=== PATIENT | female | born 1945 | race Caucasian/White ===

== ENCOUNTER 2019-07-31 14:01 | Outpatient (CLI) | payer MEDICARE, SELFPAY ==
--- NOTE | 2019-07-31 14:08 | XR_ITS ---
WS: [id number] SCREENING DEXA SCAN [employer] CLINICAL INFORMATION: OSTEOPOROSIS COMPARISON: March 27, 2016 FINDINGS: The L1-L4 bone mineral density measures 1.060 g/cm2. This corresponds to a T score score of -1.0 and Z score of 0.3. Left femoral neck bone mineral density measures 1.022 g/cm2. This corresponds to a T score of 0.1 and Z score of 1.4. Right femoral neck bone mineral density measures 1.008 g/cm2. This corresponds to a T score 0.0of and Z score of 1.2. Mean femoral neck bone mineral density measures 1.015 g/cm2. This corresponds to a T score of 0.1 and Z score of 1.3. XR/XR DEXA axial skeleton* [id number] IMPRESSION: Osteopenia lumbar spine. Normal bone mineralization femoral necks. Patient's FRAX calculated 10 year probability for major osteoporotic fracture i s 14.7 % and osteoporotic hip fracture is 1.8%. Since 2017 bone mineral density lumbar spine is increased +2.4% and increased + 2.1% in the femoral necks.
== END 2019-07-31 14:02 | disposition home or self-care (01) ==
LOC: RADWPI 14:05
PROVIDERS: Family Provider Family Medicine; Visit Provider Family Medicine
DX: M81.0 Age-related osteoporosis without current pathological fracture (principal); M85.88 Other specified disorders of bone density and structure, other site
CPT/HCPCS: 77080

== ENCOUNTER 2019-11-23 09:41 | Outpatient (CLI) | payer MEDICARE, SELFPAY ==
--- NOTE | 2019-11-23 09:44 | MM_ITS ---
WS: [id number] BILATERAL SCREENING DIGITAL MAMMOGRAM WITH CAD HISTORY: SCREEN COMPARISON: 07/10/2018, 05/23/2017 and 03/27/2016 Bilateral CC and MLO views submitted. Computer aided detection analyzed. Breast composition: The breasts are heterogeneously dense, which may obscure small masses. No suspici ous masses, microcalcifications or architectural distortion. Benign calcifications and stable asymmet liliana within each breast. MM/[id number] IMPRESSION: BI-RADS: 2-Benign FOLLOW UP: 1 Year Follow-up
== END 2019-11-23 09:42 | disposition home or self-care (01) ==
LOC: RADSHAW 09:41
PROVIDERS: PCP Family Medicine; Visit Provider Family Medicine
DX: Z12.31 Encounter for screening mammogram for malignant neoplasm of breast (principal)
CPT/HCPCS: 77067

== ENCOUNTER → 2020-07-25 13:09 | Outpatient (BNVA) | payer MEDICARE, SELFPAY | PROVIDERS: PCP Family Medicine; Referring Provider Family Medicine; Visit Provider Specialist | DX: S83.289A Other tear of lateral meniscus, current injury, unspecified knee, initial encounter (principal); X58.XXXA Exposure to other specified factors, initial encounter | CPT/HCPCS: 73560; 73565 ==

== ENCOUNTER 2020-08-17 13:21 | Outpatient (CLI) | payer MEDICARE, SELFPAY ==
--- NOTE | 2020-08-17 13:45 | MR_ITS ---
WS: [id number] MRI RIGHT KNEE NONCONTRAST TECHNIQUE: Axial PD, coronal PD fat sat, coronal PD, sagittal PD, and sagittal PD fat-sat images obta ined. CLINICAL INFORMATION: S83.289A - Other tear of lateral meniscus, current injury... COMPARISON: None. FINDINGS: Distal quadriceps and patella tendons are intact. Hypertrophic patella. Mild prepatellar and infrapat ellar soft tissue edema. Moderate to advanced degenerative narrowing medial and lateral joint compart ments. Small suprapatellar effusion. Chronic thinning of the medial and lateral meniscus. No acute ap pearing meniscal tears. Blunting anterior horn lateral meniscus with chronic appearing tear at the me niscal root. Advanced chondromalacia patella. No subchondral edema. Normal medial and lateral patellar retinaculum . Medial and lateral collateral ligaments are intact. Normal bone marrow signal in the femoral condyl es and tibial plateau. Hypertrophic changes along the joint line. Normal popliteal fossa. MR/MR knee RT wo con* [id number] IMPRESSION: 1. Diffuse thinning with poorly visualized ACL with intrasubstance tear likely chronic. A few normal fibers are visualized. Normal PCL. 2. Moderate to advanced tricompartmental arthritis with chondromalacia. 3. Advanced chondromalacia patella. No subchondral edema. Small suprapatellar effusion. 4. Normal MCL and LCL. 5. Chronic thinning of the medial and lateral meniscus. Blunting of the anteri or horn lateral meniscus with chronic appearing tear at the meniscal root. Outbridge grading: grade III: partial-thickness cartilage loss with focal ulcer ation
== END 2020-08-17 13:22 | disposition home or self-care (01) ==
LOC: RADSHAW 13:26
PROVIDERS: PCP Family Medicine; Visit Provider Specialist
DX: S83.281A Other tear of lateral meniscus, current injury, right knee, initial encounter (principal); M13.861 Other specified arthritis, right knee; M22.41 Chondromalacia patellae, right knee; M25.461 Effusion, right knee; X58.XXXA Exposure to other specified factors, initial encounter
CPT/HCPCS: 73721

== ENCOUNTER 2021-07-04 06:00 | Outpatient (RCR) | payer MEDICARE, SELFPAY | END 2021-08-01 23:59 | disposition home or self-care (01) | LOC: SPT 06:00 | PROVIDERS: PCP Family Medicine; Referring Provider Nurse Practitioner Family; Visit Provider Nurse Practitioner Family | DX: N39.46 Mixed incontinence (principal) | CPT/HCPCS: 97110; 97161; 97530 ==

== ENCOUNTER 2021-07-24 13:43 | Outpatient (CLI) | payer MEDICARE, SELFPAY ==
--- NOTE | 2021-07-24 13:51 | MM_ITS ---
WS: [id number] VIEWS: MLO and CC views both breasts. 3D digital tomosynthesis is also included in this exam. Comparison made with prior exam of 03/10/2015, 03/27/2016, 05/23/2017, 07/10/2018, and 11/23/2019.. Findings: There was no sign of mass, architectural distortion or suspicious calcification in either breast. He terogeneously dense MM/[place] [id number] Impression: BI-RADS: 2-Benign FOLLOW-UP: 1 Year Follow-up This mammogram was also analyzed by the Computer Aided Detection System R2 [employer].
--- NOTE | 2021-07-24 13:51 | XR_ITS ---
WS: [id number] DEXA (DUAL ENERGY X-RAY ABSORPTIOMETRY) Bone mineral density was performed using a Picovico machine. HISTORY: POSTMENOPAUSAL COMPARISON: 07/31/2019 Lumbar spine BMD (L1-L4): 1.084 g/cm2 T score: -0.8 Z score: 0.4 Total hip BMD: Left: 1.030 g/cm2. T score: 0.2 Z score: 1.4 Right: 1.018 g/cm2. T score: 0.1 Z score: 1.4 10 year probability of a major osteoporotic fracture is 14.8% Compared to the prior study from 07/31/2019. Lumbar spine bone mineral density has increased by 2.3%. Bilateral hips bone mineral density has increased by 0.9%. XR/XR DEXA axial skeleton* [id number] IMPRESSION: Normal bone mineral density based upon the WHO classification for females. Significant improvement in bone mineral density within the lumbar spine since t he prior study.
== END 2021-07-24 13:44 | disposition home or self-care (01) ==
LOC: RAD 13:44
PROVIDERS: PCP Family Medicine; Visit Provider Nurse Practitioner Family
DX: Z12.31 Encounter for screening mammogram for malignant neoplasm of breast (principal); Z78.0 Asymptomatic menopausal state; M85.89 Other specified disorders of bone density and structure, multiple sites
CPT/HCPCS: 77063; 77067; 77080

== ENCOUNTER 2021-08-02 06:00 | Outpatient (RCR) | payer MEDICARE, SELFPAY | END 2021-08-09 23:59 | disposition home or self-care (01) | LOC: SPT 06:00 | PROVIDERS: PCP Family Medicine; Referring Provider Nurse Practitioner Family; Visit Provider Nurse Practitioner Family | DX: N39.46 Mixed incontinence (principal); M54.50 Low back pain, unspecified | CPT/HCPCS: 97110 ==

== ENCOUNTER 2022-08-14 08:39 | Outpatient (CLI) | payer MEDICARE, SELFPAY ==
--- NOTE | 2022-08-14 08:45 | MM_ITS ---
WS: [id number] BILATERAL 3D TOMOSYNTHESIS DIGITAL SCREENING MAMMOGRAPHY WITH CAD CLINICAL INFORMATION: SCREENING HISTORY: Screening mammogram. No current complaints. COMPARISON: 2021 TECHNIQUE: Bilateral CC and MLO views. FINDINGS: The breasts are composed of heterogeneous fibroglandular density tissue, which can limit the detectio n of small underlying mass lesions. No suspicious mass, asymmetry, calcifications, or architectural d istortion. No evidence of malignancy. Punctate and lucent centered calcifications. MM/[place] [id number] IMPRESSION: BI-RADS: 2-Benign FOLLOW UP: 1 Year Follow-up Recommend return to annual screening mammography.
== END 2022-08-14 08:40 | disposition home or self-care (01) ==
PROVIDERS: PCP Family Medicine; Visit Provider Family Medicine
DX: Z12.31 Encounter for screening mammogram for malignant neoplasm of breast (principal)
CPT/HCPCS: 77063; 77067

== ENCOUNTER → 2022-09-21 09:47 | Outpatient (BNVA) | payer MEDICARE, SELFPAY | PROVIDERS: PCP Family Medicine; Visit Provider Podiatrist Foot & Ankle Surgery | DX: M76.61 Achilles tendinitis, right leg (principal); M24.571 Contracture, right ankle | CPT/HCPCS: 73630; 99204 ==

== ENCOUNTER → 2022-10-04 08:35 | Outpatient (BNVA) | payer MEDICARE, SELFPAY | PROVIDERS: PCP Family Medicine; Referring Provider Emergency Medicine; Visit Provider Student in an Organized Health Care Education/Training Program | DX: M17.11 Unilateral primary osteoarthritis, right knee | CPT/HCPCS: 20610; 73560; 73565; 99204; J3301 ==

== ENCOUNTER → 2022-10-19 09:56 | Outpatient (BNVA) | payer MEDICARE, SELFPAY | PROVIDERS: PCP Family Medicine; Visit Provider Podiatrist Foot & Ankle Surgery | DX: M76.61 Achilles tendinitis, right leg (principal); M24.571 Contracture, right ankle | CPT/HCPCS: 99213 ==

== ENCOUNTER → 2023-01-03 10:38 | Outpatient (BNVA) | payer MEDICARE, SELFPAY | PROVIDERS: PCP Family Medicine; Visit Provider Physician Assistant | DX: M17.11 Unilateral primary osteoarthritis, right knee (principal) | CPT/HCPCS: 99213 ==

== ENCOUNTER → 2023-02-08 09:17 | Outpatient (BNVA) | payer MEDICARE, SELFPAY | PROVIDERS: PCP Family Medicine; Visit Provider Physician Assistant | DX: M17.11 Unilateral primary osteoarthritis, right knee (principal) | CPT/HCPCS: 20610; 99213; J7325 ==

== ENCOUNTER → 2023-05-07 08:23 | Outpatient (BNVA) | payer MEDICARE, SELFPAY | PROVIDERS: PCP Family Medicine; Visit Provider Physician Assistant | DX: M17.11 Unilateral primary osteoarthritis, right knee (principal) | CPT/HCPCS: 99214 ==

== ENCOUNTER 2023-07-03 13:52 | Outpatient (CLI) | payer MEDICARE, SELFPAY ==
--- NOTE | 2023-07-03 14:00 | CT_ITS ---
WS: [id number] CT RIGHT KNEE, NONCONTRAST [facility] TECHNIQUE: Noncontrast CT of the RIGHT knee to include the RIGHT hip and ankle. CLINICAL INFORMATION: M17.11 - Unilateral primary osteoarthritis, right knee COMPARISON: None. DLP: 911.[address] scans at [facility] use at least one of these dose optimization techniques: automated e xposure control; mA and/or kV adjustment per patient size (includes targeted exams where dose is matc hed to clinical indication); or iterative reconstruction. FINDINGS: Advanced tricompartmental arthritis RIGHT knee. Hypertrophic patella. Small suprapatellar effusion. H ypertrophic changes along the joint line. A few sigmoid diverticuli. Moderate degenerative arthritis both hips. CT/CT knee RT DILLAN [id number] IMPRESSION: Images obtained for preoperative purposes.
== END 2023-07-03 13:53 | disposition home or self-care (01) ==
LOC: RAD 13:53
PROVIDERS: PCP Family Medicine; Visit Provider Student in an Organized Health Care Education/Training Program
DX: Z01.818 Encounter for other preprocedural examination (principal); M17.11 Unilateral primary osteoarthritis, right knee
CPT/HCPCS: 73700

== ENCOUNTER 2023-07-23 09:08 | Outpatient (CLI) | payer MEDICARE, SELFPAY ==
[2023-07-23 09:41] LABS: Basophils % 0.3 %; Eosinophils # 0.3 10^3/uL (0.0-0.8); Hematocrit 40.6 % (36-47); Lymphocytes # 1.7 10^3/uL (0.8-4.8); Lymphocytes % 25.5 %; Mean Corpuscular HGB Conc 33.3 g/dL (30-55); Mean Corpuscular Hemoglobin 30.4 pg (27-33); Mean Corpuscular Volume 91.4 fl (85-98); Mean Platelet Volume 12.1 fL (7.4-10.4); Monocytes # 0.4 10^3/uL (0.2-0.9); Monocytes % 6.3 %; Neutrophils # 4.26 10^3/uL (1.8-7.7); Neutrophils % 63.6 %; Nucleated Red Blood Cells % 0 %; Platelet Count 215 10^3/cmm (157-399); Red Blood Count 4.44 10^6/uL (3.85-5.65); Red Cell Distribution Width 12.2 % (12.1-15.1)
[2023-07-23 10:06] LABS: Alanine Aminotransferase 21 U/L (0-33); Albumin Level 4.1 g/dL (3.5-5.2); Alkaline Phosphatase 82 U/L (35-105); Anion Gap 18.1 (5-19); Aspartate Amino Transferase 22 U/L (0-32); Blood Urea Nitrogen 17 mg/dL (8-23); Calcium 9.3 mg/dL (8.5-10.5); Carbon Dioxide 23 mmol/L (22-29); Chloride 104 mmol/L (98-107); Globulin 2.7 g/dL (1.3-4.6); Glucose 183 mg/dL (65-115); Osmolality Calculated 298 mOsm/kg (285-295); Potassium 4.1 mmol/L (3.5-5.1); Sodium 141 mmol/L (136-145); Total Bilirubin 0.5 mg/dL (0.15-1.2); Total Protein 6.8 g/dL (6.6-8.7)
[2023-07-23 16:27] LABS: Add Urine Microscopic? YES; Bilirubin Urine Neg (Negative); Blood Urine Neg (Negative); Glucose Urine UA Norm (Normal); Ketones Urine Negative (Negative); Leukocyte Esterase Urine Trace (Negative); Nitrate Urine Negative (Negative); Protein Urine Neg (Negative); Specific Gravity, Urine 1.005 (1.005-1.030); Urine Appearance Clear (CLEAR); Urine Color Yellow (Yellow); Urobilinogen Urine Norm (Negative); pH Urine 7 (5-7)
[2023-07-23 16:35] LABS: RBC Urine 0-4 /hpf (0-2); Squamous Epithelial Cell Urine 0-4 /hpf (0-5)
[2023-07-23 16:36] LABS: Bacteria Urine TRACE /hpf
== END 2023-07-23 09:09 | disposition home or self-care (01) ==
LOC: LAB 09:10
PROVIDERS: Physician Assistant; PCP Family Medicine; Visit Provider Student in an Organized Health Care Education/Training Program
DX: Z01.818 Encounter for other preprocedural examination (principal)
CPT/HCPCS: 36415; 80053; 81001; 85025

== ENCOUNTER → 2023-07-30 09:03 | Outpatient (BNVA) | payer MEDICARE, SELFPAY | PROVIDERS: PCP Family Medicine; Visit Provider Family Medicine | DX: Z01.818 Encounter for other preprocedural examination (principal) | CPT/HCPCS: 81003; 93005 ==

== ENCOUNTER 2023-08-12 09:16 | Observation (INO) | payer MEDICARE, SELFPAY ==
[2023-08-12] VITALS (24 sets, daily range): BP systolic 103–192; BP diastolic 45–78; PULSE 64–79; RESP 8–21; TEMP 35.8–36.5; O2SAT 93–100; BMI 33.5; BMI 37.0
[2023-08-12] MEDS: lactated ringers 500 ML IV (06:21)
[2023-08-12] MEDS: ketorolac 30 mg/mL INJ IVP (06:22)
[2023-08-12] MEDS: acetaminophen 1,000 MG/100 ML PIGGYBACK 400 MG IV ×3 (06:23→21:15)
[2023-08-12] MEDS: scopolamine 1.5 Patch 1 PATCH TRANSDERMA (06:26)
[2023-08-12] MEDS: sodium chloride 0.9% 1,000 ML 30 ML IV (06:33)
--- NOTE | 2023-08-12 06:51 | W.PM.OPSUD ---
Surgery/Procedure H&P Update DATE OF PROCEDURE: August 12, 2023 DATE H&P PERFORMED: 07/29/53 H&P UPDATE INFORMATION: I have reviewed H&P completed within last 30 days, I have examined patient prior to procedure and No changes to prior documentation CHANGES TO PREVIOUS DOCUMENTATION: No change in health since previous visit, no recent injections within the last 90 PREOP DIAGNOSIS: Right knee degenerative joint disease PRIMARY INDICATION FOR PROCEDURE: Right knee degenerative joint disease PLANNED PROCEDURE: Operation Date: 08/12/23 07:00 Proposed Procedures p Cuate Robot Total Knee Arthroplasty(Right) - Jose Roberto Altamirano DO
[2023-08-12] MEDS: ceFAZolin 2,000 MG in sodium chloride 0.9% (plus) 50 ML 100 MG IV ×2 (06:59→17:08)
[2023-08-12 07:00] LABS: Basophils % 0.5 %; Eosinophils # 0.2 10^3/uL (0.0-0.8); Eosinophils % 2.6 %; Hematocrit 42.2 % (36-47); Lymphocytes # 2.4 10^3/uL (0.8-4.8); Lymphocytes % 30.7 %; Mean Corpuscular HGB Conc 34.1 g/dL (30-55); Mean Corpuscular Hemoglobin 30.6 pg (27-33); Mean Corpuscular Volume 89.8 fl (85-98); Monocytes # 0.6 10^3/uL (0.2-0.9); Monocytes % 7.7 %; Neutrophils # 4.46 10^3/uL (1.8-7.7); Neutrophils % 58.4 %; Nucleated Red Blood Cells % 0 %; Platelet Count 230 10^3/cmm (157-399); Red Cell Distribution Width 12.1 % (12.1-15.1); White Blood Count 7.65 10^3/uL (3.29-11.43)
[2023-08-12 07:08] LABS: Blood Urea Nitrogen 15 mg/dL (8-23); Calcium 9.7 mg/dL (8.5-10.5); Carbon Dioxide 25 mmol/L (22-29); Chloride 104 mmol/L (98-107); Creatinine Clr Calc Pharmacy 63.0498; Glucose 118 mg/dL (65-115); Osmolality Calculated 298 mOsm/kg (285-295); Sodium 143 mmol/L (136-145)
[2023-08-12] MEDS: tranexamic acid 1,000 mg/10mL SDV 1000 MG IV (07:18)
--- NOTE | 2023-08-12 07:44 | ANES.PREANE2 ---
Pre-Anesthetic Assessment Height/Weight: Height 1.6 m Weight 85.729 kg Temp Pulse Resp BP Pulse Ox O2 Del Method 97.3 F L 64 18 192/67 97 Room Air 08/12/23 06:08 08/12/23 06:08 08/12/23 06:08 08/12/23 06:08 08/12/23 06:08 08/12/23 06:08 Preop Diagnosis: Right knee degenerative joint disease Operation Date: 08/12/23 07:00 Proposed Procedures p Cuate Robot Total Knee Arthroplasty(Right) - Jose Roberto Altamirano DO Familial anesthetic complications: none Was Beta Kvng taken within 24 hours: N/A Was Clonidine taken within 24 hours: N/A Last intake: Intake Last Liquid Date 08/11/23 Last Liquid Time 21:00 Last Solid Date 08/11/23 Last Solid Time 21:00 Social No alcohol and No tobacco Exam alert, oriented x 3, clear to auscultation bilaterally and regular rate & rhythm Airway Submandibular: within normal limits Cervical ROM: within normal limits Mallampati: Class II CV/HEM Hypertension Metabolic Morbid Obesity and Thyroid Disease [facility] Osteoarthritis/DJD Anesthetic Plan ASA status: 3 Anesthesia: Regional (specify below) (SAB with right adductor blk) Medications/Allergies Home Medications Medication Instructions Recorded Confirmed Last Taken Type alendronate 70 mg tablet (Fosamax) 70 mg PO .weekly 05/30/19 08/12/23 08/11/23 History levothyroxine 0.5 tab PO DAILY 10/04/22 08/12/23 08/12/23 History atorvastatin 20 mg tablet 20 mg PO DAILY 01/03/23 08/12/23 08/11/23 History losartan 50 mg-hydrochlorothiazide 1 tab PO DAILY 07/30/23 08/12/23 08/12/23 History 12.5 mg tablet Allergies Allergy/AdvReac Type Severity Reaction Status Date / Time quinine Allergy ALGY-Hives Verified 08/12/23 06:01 Current Medications Generic Name Dose Route Start Last Admin Trade Name Freq PRN Reason Stop Dose Admin Sodium Chloride 1,000 mls @ 30 mls/hr 08/12/23 06:00 08/12/23 06:33 Sodium Chloride 0.9% IV 08/13/23 05:59 30 mls/hr .Q24H RENE Administration PFSH Anesthesia Social History Smoking and tobacco/nicotine status: never used tobacco/nicotine Alcohol intake: never Data Anesthesia 08/12/23 06:30 08/12/23 06:30 Short CBC 08/12/23 Range/Units 06:30 WBC 7.65 (3.29-11.43) 10^3/uL Hgb 14.40 (11.27-16.99) g/dL Hct 42.2 (36-47) % MCV 89.8 (85-98) fl Plt Count 230 (157-399) 10^3/cmm Neut % (Auto) 58.4 % Neut # (Auto) 4.46 (1.8-7.7) 10^3/uL BMP 08/12/23 06:30 Sodium 143 Potassium 4.0 Chloride 104 Carbon Dioxide 25 BUN 15 Creatinine 0.7 Glucose 118 H Calcium 9.7 Cardiac Studies: No Data to Display Anesthesia Procedures Nerve Block Nerve Block 1: Main Anesthesia: spinal anesthesia block Time Out Performed: Yes Consent: requested by attending/covering physician, from patient, risks and benefits reviewed and patient agrees to proceed Nerve block location: adductor canal (right) Anesthesia monitors applied: pulse oximetry, EKG, BP cuff and oxygen Nerve block position: supine Anesthetic Used: ropivicaine 0.5% Amount of anesthesia used (mL): 20 Ultrasound used to: recognize landmarks Nerve Stimulator Used?: No Interscalene/Femoral BLK: 4 stimuplex 21 g needle used for position and inplane approach Injection: neg aspiration of heme Patient Tolerated Procedure: well Complications: none
[2023-08-12] MEDS: tranexamic acid 1,000 mg/10mL SDV 1000 MG XX (08:01)
[2023-08-12] MEDS: EPINEPHrine 1 mg/mL INJ XX (08:01)
[2023-08-12] MEDS: ketorolac 30 mg/mL INJ XX (08:01)
[2023-08-12] MEDS: ROPivacaine 0.2% Btl 100 mL 200 MG XX (08:01)
--- NOTE | 2023-08-12 09:17 | P.BOP_ITS ---
Date of Procedure: 08/12/2023 Surgeon: Jose Roberto Altamirano DO Project Reservoir Engineer(s): Modesto Altamirano PA-C Procedure(s) performed: Right total knee arthroplasty?Cuate robotic assisted Findings of the procedure(s): Patient found to have right knee severe degenerative joint disease and underwent procedure as planned without issues or complications. Estimated blood loss: 100 mL Specimen(s) removed: Tibia patellar and femur bone cuts removed Post-operative diagnosis: Right knee degenerative joint disease
--- NOTE | 2023-08-12 09:18 | P.OP_ITS ---
Operative Report Date of procedure: August 12, 2023 Surgeon: Jose Roberto Altamirano DO Licensed Surveyor: Modesto Altamirano PA-C: PA was necessary for assistance in this case with leg positioning retraction and protection of neurovascular structures as well as assistance in implantation wound closure and dressing application. Procedure: Preoperative diagnosis: Right knee degenerative joint disease post-op diagnosis: Same Procedure done: Right total knee arthroplasty, cemented?robotic assisted Cuate Implants: Taylor triathlon size 2 femur CR cemented?right [place] triathlon size? 2 tibia universal baseplate cemented [place] triathlon symmetric patella size 29 mm Taylor triathlon polyethylene 10mm Surgeon: Jose Roberto Altamirano DO Estimated blood loss: 100 mL Tourniquet 20minutes IV fluids: 1600 mL Urine output: 300mL Complications: None Condition: stable Disposition: floor Brief History: Patient is a 77-year-old female with with chronic?right knee degenerative joint disease.? Patient has been worked up in the outpatient setting in the orthopedic office at this point time through shared decision making given cvcm-qh-trkg arthritis as well as failed conservative treatment, and pt would like to proceed with a?right total knee arthroplasty.? Through shared decision making elected to proceed with surgical intervention for?right total knee arthroplasty.? We talked about continued conservative treatment and surgical intervention as far as the?risk benefits complications alternatives surgical and nonsurgical treatment options.? At this point time understanding patient?risks with surgery pt agrees to proceed with surgical intervention.? Once again??risk with surgery include but are not limited to make it better make it worse blood clot, heart attack, stroke, on the table, infection, injury to nerves or vessels, persistent pain, arthrofibrosis, implant failure.? Understanding these?risks patient agrees to proceed with surgical intervention consent was obtained in the office.? All questions answered. Procedure: Patient was seen and evaluated in the preoperative holding area.? Consent was?reviewed and signed with patient with plan for?right total knee arthroplasty.? All questions answered.? Correct extremity marked.? Patient seen and evaluated by the anesthesia department and once cleared for surgery was taken back to the operative suite.? Patient was placed into a supine position on the OR table.? All bony prominences were well-padded.? Patient was appropriately secured to the bed.? Patient underwent anesthesia per the anesthesia depa rtment.? Patient?received spinal anesthesia and? Chandler catheter was placed.? A nonsterile tourniquet was applied to the?right thigh.? At this point in time a final timeout performed.? Patient?received appropriate preoperative antibiotics and TXA. Next the?right lower extremity was then prepped and draped in standard orthopedic fashion. Esmarch tourniquet was used exsanguinate the?right lower ext remity.? Tourniquet was insufflated to 300 mmHg. A standard anterior incision was made over midline of the knee.? Sharp scalpel excision through skin and subcutaneous tissue full-thickness skin flaps were made.? Fascia was elevated off of the extensor?retinaculum was stable with medial parapatellar arthrotomy was then made.? The performed standard sequential?releases..? Immediately on entry into the joint patient was found to have severe eburnated bone and tricompartmental arthritic changes noted.? With significant osteophyte formation.? Next the the patella was then stuffed and the knee was then flexed.?? Kadeem was placed superiorly around the anterior aspect of the femur this was freed of synovium and I subsequently then placed by 2 femur pins to establish my femur arrays for the Tarisa?robot.? These were then placed bicortically and? femur array was then appropriately secured with appropriate visualization.? Next attention was turned towards the tibial?rays.? These were then drilled sequentially bicortically in parallel fashion and intraincisional.? I then placed my guide as well as my tibial array on in place.? This was appropriately secured and had excellent visualization with the Cuate?robot.? Next the tibial checkpoint as well as femur checkpoint were then placed.? At this point time I then subsequently established my head center as well as my medial lateral malleoli as well as my checkpoints.? Next utilizing standard Cuate technology I then mapped out the appropriate points and confirmation points around the femur as well as the tibia in standard fashion.? Once this was then done I then?removed all osteophytes in preparation for dynamic testing.? All osteophytes were?removed as well as I?removed the ACL and the PCL was excised due to its significant tearing and degeneration noted.? At this point time the knee was brought into full extension and we performed our standard evaluation of our gap balancing stressing his ligaments and extension as well as flexion appropriate adjustments were made to have appropriate gap balancing in both flexion and extension.? This plan for final counts.? We get a preoperative plan evaluating our implants which was a size 2 femur and a size 2 tibia.? Next we brought in the Tarisa?robot and sequentially made our femur cuts.? All excess bony cuts were then?removed.? Finally we made our tibial cut.? After just about 20 minutes with tourniquet being up it was found to be a venous tourniquet and it was subsequently left down throughout the entirety of the case. Once this was done a standard PCL?retractor was then placed into this position I excised the medial and lateral meniscus.? The tibial cut was then subsequently?removed all excess bony debris was?removed.? I then utilized a lamina technology methodology consultant and?remove the posterior osteophytes.? At this point time sized the tibia and confirmed this was a size 2.? I utilized our blunt probe to establish?rotation of tibial implant.? Once this was done I then placed my tibia size 2 trial in appropriate position and then subsequently placed tibial pins to hold this into place placed a size 10 mm poly as well as a size 2 femur which was appropriately impacted in place knee was then subsequently brought into extension. Trials were then assessed, 10 mm poly and this was stable with varus valgus stress in extension as well as had symmetrical translation when brought into flexion demonstrating symmetrical gaps. I had excellent balance gaps in flexion and extension with varus and valgus stresses.? At this point I was satisfied with these implants these were then verified and opened on the back table size 2 tibia, size 2 femur,? size 10 mm polythickness.? We did confirm appropriate gap balancing and stresses as well as alignment utilizing? Cuate and were satisfied with this plan.? ?At this point time with my trials in place I then towel clip the patella everted this made appropriate measurements subsequently utilizing freehand technique performed by patellar?resurfacing this was confirmed to be appropriate?resection and subsequently sized to be a 29 mm symmetric.? My drill peg guides were then clamped and appropriate position and appropriate position in the patella for appropriate tracking and parallel with the joint.? Pegs were drilled trial implant was placed and the knee was then subsequently?ranged and found to have excellent patellar tracking.? Femur pegs were then drilled.? ? All checkpoints as well as guidepins and arrays were?removed and appropriate counts made.?Satisfied with our tibial placement?rotation I then utilized the keel punch and prepped the tibia.? At this point time all of our trial implants were?removed. The wound bed? was thoroughly irrigated and dried and prepped for cementation.? Cement was mixed on the back table.? Once cement was?ready this was then covered onto the tibia and the tibial baseplate was then impacted and all excess cement was?removed.? Next the polyethylene was then impacted into place on the tibial baseplate.? Next cement was placed onto the femur as well as under the femur implants and impacted in to place and all excess cement was extruded and?removed.? Knee was taken into full extension? to clear all excess cement was?removed.? Warm saline was placed over the joint.? I then towel clip patella and dried for cementation. cemented the patella into place.? This was all clamped and the cement was allowed to cure.? Thorough irrigation performed with pulse lavage.? I then placed my periarticular injection while the cement was curing.? Once cured the knee was taken through?range of motion and had excellent stability and gaps were balanced in flexion and extension.? Tourniquet was then deflated. hemostasis satisfactory with electrocautery.? Next I then subsequently closed the capsule with Ethibond suture as well as a?running strata fix suture.? Knee was then taken through?range of motion 20 times.? Next the skin was then closed in layered fashion of?running stratifix sutures of deep and subcutenous tissue and skin.? ?closed in flexion and Prineo glue was then placed over the incision this allowed to cure.? Incision was covered with Silverlon, with ABDs soft?roll and Willian wrap.? Patient was then awakened from anesthesia and taken to PACU in stable condition. Disposition: Patient taken to PACU in stable condition will be admitted to the floor for pain control PT/OT weight-bear as tolerated?right lower extremity dressing changes as needed, DVT prophylaxis. Pain control. Patient will?receive appropriate postoperative antibiotics. patient will be seen today by the internal medicine team for medical management.? Patient will follow up with the office in 2 weeks.? Patient understands agrees with current plan.? All questions answered.
--- NOTE | 2023-08-12 09:24 | XRR_ITS ---
PROCEDURE INFORMATION: Exam: XR Right Knee Exam date and time: 08/12/2023 9:46 AM Age: 77 years old Clinical indication: Device placement; Joint replacement hardware; Prior surgery; Surgery date: Post-operative (0-2 days); Surgery type: Right tka; Additional info: Status post right tka TECHNIQUE: Imaging protocol: Radiologic exam of the right knee. 2image(s) are provided. Views: 1 or 2 views. COMPARISON: 1. CT knee RT DILLAN [id number] 07/03/2023 2:07 PM 2. CR XR knees AP WB w RT lmt ORTH 10/04/2022 8:40 AM FINDINGS: Bones/joints: Osseous alignment is maintained. No interval displaced fracture or dislocation is appreciated. Soft tissues: There are post surgical changes including subcutaneous. This includes good alignment of the interval knee prosthetic hardware. No periprosthetic lucency is currently appreciated. Other findings: No other significant interval changes are appreciated. XR/XR knee RT 1-2V [id number] IMPRESSION: There is good alignment of the interval knee prosthetic hardware. No interval fracture or dislocation is appreciated.
--- NOTE | 2023-08-12 09:41 | P.PCN_ITS ---
PACU note Narrative: Patient is a 77-year-old female just underwent a right total knee arthroplasty pt transferred to PACU in stable condition. Dressing is dry. pt is awake and alert. Exam is limited due to spinal anesthetic. Unable to assess motor or sensory Due to spinal. distal pulses are palpable toes are warm and well- perfused. Cap refill is normal and under 2 seconds. Pain is controlled. Exam: somnolent, arousable Disposition: admitted
--- NOTE | 2023-08-12 09:45 | P.CONIM_ITS ---
Providers/Reason For Consult 2 Consulting Physician/Specialty*: Omari Maldonado MD, hospitalist Reason for Consult*: Medical management Requesting Physician: Dr. Altamirano Attending Physician: Jose Roberto Altamirano DO Primary Care Provider: Faiza Avalos MD History of Present Illness History of Present Illness Sol Thomas is a 77 year old female who was directly postoperative right total knee arthroplasty. I have been asked to see her for medical management. Past medical history includes hypothyroidism, hypertension, hyperlipidemia. She relates no acute complaints. Surgery was uneventful, estimated blood loss less than 100 cc. She is waking up and able to be interactive although sleepy. Vital signs appear stable. She denies any chest discomfort or shortness of breath. Review of Systems 2 General: Reports: 10 or more systems reviewed and unremarkable except in HPI and below Medications/Allergies Home Medications Medication Instructions Recorded Confirmed Last Taken Type alendronate 70 mg tablet (Fosamax) 70 mg PO .weekly 05/30/19 08/12/23 08/11/23 History levothyroxine 0.5 tab PO DAILY 10/04/22 08/12/23 08/12/23 History atorvastatin 20 mg tablet 20 mg PO DAILY 01/03/23 08/12/23 08/11/23 History losartan 50 mg-hydrochlorothiazide 1 tab PO DAILY 07/30/23 08/12/23 08/12/23 History 12.5 mg tablet Allergies Allergy/AdvReac Type Severity Reaction Status Date / Time quinine Allergy ALGY-Hives Verified 08/12/23 06:01 Current Medications Generic Name Dose Route Start Last Admin Trade Name Freq PRN Reason Stop Dose Admin Sodium Chloride 1,000 mls @ 30 mls/hr 08/12/23 06:00 08/12/23 06:33 Sodium Chloride 0.9% IV 08/13/23 05:59 30 mls/hr .Q24H RENE Administration PFSH Acute 2 PFSH: Medical History (Updated 08/12/23 @ 09:47 by Omari Maldonado MD) Hyperlipidemia Hypertension Osteoporosis Hypothyroidism Surgical History (Updated 08/12/23 @ 09:47 by Omari Maldonado MD) History of tubal ligation History of tonsillectomy H/O medial meniscus repair of left knee H/O meniscectomy of right knee Social History Smoking and tobacco/nicotine status: never used tobacco/nicotine Alcohol intake: never Vitals/I&O/Wt Last Vital Signs Temp 97.3 F L 08/12/23 06:08 Pulse 64 08/12/23 06:08 Resp 18 08/12/23 06:08 BP 192/67 08/12/23 06:08 Pulse Ox 97 08/12/23 06:08 O2 Del Method Room Air 08/12/23 06:08 O2 Flow Rate 8 08/12/23 09:36 08/11/23 08/12/23 08/12/23 22:59 06:59 14:59 Intake Total 600 / 600 700 / 700 Output Total 400 / 400 Balance 600 / 600 300 / 300 Weight last 48 hrs Weight 85.729 kg Physical Exam 2 Narrative: General exam is a white female who is sleepy but can answer few questions. She is directly postoperative in the recovery unit. Vital signs are stable. HEENT: Atraumatic and normocephalic. She is dentulous. Neck is supple no lymphadenopathy thyromegaly Cardiovascular regular rate and rhythm, no murmur Lungs clear no wheezing or crackles Abdomen is soft. No obvious organomegaly. Bowel sounds are noted. exam is deferred Extremities no sinus clubbing or edema, dressing present right foot. Toes show good capillary refill less than 2 seconds. Skin no rash Neuro no obvious focal deficits Urinary Catheter Management: Chandler Latex: Cath Placed During This Visit: yes Urinary Catheter Date of Insertion: 08/12/23 Urinary Catheter Time of Insertion: 07:10 Data 08/12/23 06:30 08/12/23 06:30 Other Labs: EKG preoperatively was normal, sinus rhythm, normal axis, no acute changes. Preoperative urinalysis negative A&P Assessment and plan (1) Primary osteoarthritis of right knee: She is directly postoperative total knee arthroplasty Close monitoring and recovery prior to going to the floor Hydration today Laboratory tomorrow to check for postoperative anemia including CBC and BMP Eliquis for DVT prophylaxis Pain control per orthopedics (2) Hypertension: Hold her antihypertensive medications currently. Will want to review blood pressures prior to administration tomorrow morning. Plan Other medical problems. Continue chronic medicines. I will start Thank you for this consultation Consult Attestations 2 Medical Necessity Statement: As per primary Diagnoses Primary osteoarthritis of right knee M17.11 Hypertension I10 Time Spent (min) 36
[2023-08-12] MEDS: lactated ringers 1,000 ML 100 ML IV ×2 (12:51→22:13)
[2023-08-12] MEDS: ketorolac 30 mg/mL INJ 15 MG IVP (12:52)
[2023-08-12] MEDS: oxyCODONE 5 mg IR Tab/Cap PO ×2 (12:52→23:44)
[2023-08-12] MEDS: chlorhexidine gluconate 0.12% Btl 473 mL 30 ML MUCOUS MEM ×3 (12:52→21:14)
[2023-08-12] MEDS: tranexamic acid 1,000 MG/100 ML PREMIX 600 MG IV (15:56)
--- NOTE | 2023-08-12 15:56 | ANE.PACU2 ---
Inpatient post-anesthesia follow up: Airway intact: Yes Vital signs: Temperature 97.6 F Pulse Rate 67 Respiratory Rate 16 Blood Pressure 154/77 Pulse Oximetry 98 Oxygen Delivery Me thod Room Air Oxygen Flow Rate 8 Fraction of Inspir ed Oxygen Hydration adequate: Yes Nausea and vomiting: No Pain level: 2 Mental status: Baseline
[2023-08-12] MEDS: mupirocin oint 22 gm 1 APPLIC NASAL (17:07)
[2023-08-12] MEDS: calcium carb-vit d 600mg/400unit 1 Tablet 1 EACH PO (17:07)
[2023-08-12] MEDS: iron polysaccharide complex 150 mg Capsule PO (17:07)
[2023-08-12] MEDS: sennosides-docusate Tablet 2 TAB PO (17:07)
[2023-08-12] MEDS: TRAMadol 50 mg Tablet PO (17:08)
[2023-08-12] MEDS: docusate sodium 100 mg Capsule PO (17:11)
[2023-08-12] MEDS: lanolin oint 7 gm 1 APPLIC TOPICAL (23:44)
[2023-08-13] VITALS (7 sets, daily range): BP systolic 144–171; BP diastolic 64–71; PULSE 65–79; RESP 17–20; TEMP 36.4–36.6; O2SAT 95–97; BMI 37.5
[2023-08-13] MEDS: ceFAZolin 2,000 MG in sodium chloride 0.9% (plus) 50 ML 100 MG IV ×2 (00:15→09:15)
[2023-08-13] MEDS: acetaminophen 1,000 MG/100 ML PIGGYBACK 400 MG IV (05:33)
[2023-08-13 05:58] LABS: Basophils % 0.1 %; Hematocrit 32.7 % (36-47); Lymphocytes # 1.5 10^3/uL (0.8-4.8); Lymphocytes % 10.6 %; Mean Corpuscular HGB Conc 33.9 g/dL (30-55); Mean Corpuscular Hemoglobin 30.5 pg (27-33); Mean Corpuscular Volume 89.8 fl (85-98); Mean Platelet Volume 11.9 fL (7.4-10.4); Monocytes # 0.7 10^3/uL (0.2-0.9); Monocytes % 5.4 %; Neutrophils # 11.39 10^3/uL (1.8-7.7); Neutrophils % 83.5 %; Nucleated Red Blood Cells % 0 %; Platelet Count 185 10^3/cmm (157-399); Red Blood Count 3.64 10^6/uL (3.85-5.65); Red Cell Distribution Width 12.2 % (12.1-15.1); White Blood Count 13.63 10^3/uL (3.29-11.43)
[2023-08-13 06:15] LABS: Anion Gap 13.1 (5-19); Blood Urea Nitrogen 14 mg/dL (8-23); Carbon Dioxide 23 mmol/L (22-29); Chloride 104 mmol/L (98-107); Creatinine Clr Calc Pharmacy 67.0528; Glucose 121 mg/dL (65-115); Osmolality Calculated 284 mOsm/kg (285-295); Potassium 4.1 mmol/L (3.5-5.1); Sodium 136 mmol/L (136-145)
[2023-08-13] MEDS: sennosides-docusate Tablet 2 TAB PO (09:12)
[2023-08-13] MEDS: docusate sodium 100 mg Capsule PO (09:12)
[2023-08-13] MEDS: iron polysaccharide complex 150 mg Capsule PO (09:12)
[2023-08-13] MEDS: levothyroxine 50 mcg Tablet PO (09:12)
[2023-08-13] MEDS: atorvastatin 40 mg Tablet 20 MG PO (09:12)
[2023-08-13] MEDS: losartan 50 mg Tablet PO (09:13)
[2023-08-13] MEDS: calcium carb-vit d 600mg/400unit 1 Tablet 1 EACH PO (09:13)
[2023-08-13] MEDS: pantoprazole DR 40 mg Tablet PO (09:13)
[2023-08-13] MEDS: apixaban 5 mg Tablet 2.5 MG PO (09:13)
[2023-08-13] MEDS: multivitamin therapeutic Tablet 1 TAB PO (09:14)
[2023-08-13] MEDS: mupirocin oint 22 gm 1 APPLIC NASAL (09:14)
[2023-08-13] MEDS: chlorhexidine gluconate 0.12% Btl 473 mL 30 ML MUCOUS MEM (09:14)
[2023-08-13] MEDS: hydroCHLOROthiazide 25 mg Tablet 12.5 MG PO (09:14)
[2023-08-13] MEDS: lactated ringers 1,000 ML 100 ML IV (09:15)
--- NOTE | 2023-08-13 09:22 | P.PN_ITS ---
Subjective 2 Subjective: Knee pain is present but overall under control. Had an episode of difficulty swallowing this morning where food got stuck, resolved within about 10 minutes. She states she has had multiple episodes of this at home. She is already trying to chew her food well. She has not had an EGD in the past. Medications: Reviewed: Yes Vitals/I&O/Wt Last Vital Signs Temp 97.9 F 08/13/23 07:37 Pulse 79 08/13/23 08:50 Resp 17 08/13/23 07:37 BP 155/70 08/13/23 09:13 Pulse Ox 96 08/13/23 08:50 O2 Del Method Room Air 08/13/23 08:50 O2 Flow Rate 8 08/12/23 09:46 08/12/23 08/13/23 08/13/23 22:59 06:59 14:59 Intake Total 1886.667 / 3220.167 270 / 3490.167 1480 / 1480 Output Total 450 / 850 950 / 1800 Balance 1436.667 / 2370.167 -680 / 2417.699 2665 / 1480 Weight last 48 hrs Weight 96.162 kg Weight 94.846 kg Weight 85.729 kg Physical Exam 2 Narrative: General exam no distress currently Neck is supple no lymphadenopathy thyromegaly Cardiovascular regular rate and rhythm, no murmur Lungs clear no wheezing or crackles Abdomen is soft. No obvious organomegaly. Bowel sounds are noted. Extremities no sinus clubbing or edema, dressing present right foot. Toes show good capillary refill less than 2 seconds. Urinary Catheter Management: Chandler Latex: Cath Placed During This Visit: yes, but has since been removed by the nurse Reason for Continuing Indwelling Catheter: Decision to DC Catheter Urinary Catheter Date of Insertion: 08/12/23 Urinary Catheter Time of Insertion: 07:10 Date Urinary Catheter Removed: 08/13/23 Time Urinary Catheter Discontinued: 05:39 Data 08/13/23 05:32 08/13/23 05:32 A&P Assessment and plan (1) Primary osteoarthritis of right knee: Postoperative day #1 status post total knee arthroplasty Does have some acute postoperative blood loss anemia, although not in need of transfusion. Encourage continued hydration. Eliquis for DVT prophylaxis Pain control per orthopedics (2) Hypertension: Okay to proceed with antihypertensives Plan Dysphagia. I called her primary care provider to discuss that she would need a referral as an outpatient. I placed her on Protonix 40 mg daily. She will stop her alendronate for now until this is further clarified. Other medical problems. Continue chronic medicines. I will start Thank you for this consultation Attestations 2 Medical Necessity Statement*: As per primary Diagnoses Primary osteoarthritis of right knee M17.11 Hypertension I10 Time Spent (min) 21
--- NOTE | 2023-08-13 09:50 | PC.CHAP ---
Pastoral Care Encounter/Spiritual Assessment Type of Contact [] Declined screening unit registered nurse visit [] Patient/Family/Request visit [] Outpatient visit [] Follow-up visit [] Physician referral [] Code/Alert [] Routine visit [] Staff referral [] Actively dying [] Patient sleeping [] Family support [] [] Out of room [] Palliative care [] [x] Receiving care in room [] Pre-surgical visit [] Trauma [] Long length of stay [] ICU visit [] Other: Relational/Emotional Strength [] Patient feels connected with others/family/visitors/staff [] Distress [] Loneliness/isolation [] Abandonment Spirituality of Patient [] Person of Shadia [] Attends Judaism of their Shadia [] Believes in Prayer [] Reads Bible or Scientologist materials [] There are Spiritual issues to be addressed Lead Generation Specialist Interventions [] Prayer [] Active listening [] Non-anxious presence [] Spiritual/emotional support [] Crisis/trauma care [] Spiritual counseling [] Bereavement support [] Provided bereavement packet [] Provided Bible/devotional materials [] Provided toy/stuffed animal, coloring book to patient or family member [] Provided Communion [] Anointing/[place] [] Salvation [] Completed spiritual assessment [] Other: Impact on Illness or Injury [] Angry [] Fearful [] Anxious [] Often cries [] Exhaustion [] Unable to work [] Unable to attend mormonism [] Unable to walk/stand [] Unable to read [] Unable to drive [] Unable to eat/drink [] Unable to sleep [] Unable to be with family [] Patient intubated [] Other: Summary Time spent with patient
--- NOTE | 2023-08-13 10:08 | P.DS_ITS ---
Discharge Providers Date of Admission: 08/12/23 09:16 Date of Discharge: August 13, 2023 Attending Provider at Admission: Jose Roberto Altamirano DO Attending Provider at Discharge: Jose Roberto Altamirano DO Consults: Dr. Maldonado?hospitalist Primary Care Provider: Faiza Avalos MD Diagnoses at Discharge Discharge Diagnosis (1) Primary osteoarthritis of right knee: Status: Resolved (2) Hypertension: Status: Acute Reason for Visit Reason for Visit: M17.11 Brief History: Status post right TKA Hospital Course Hospital Course Patient presented to the preoperative holding area with plan for right total knee arthroplasty after patient has been worked up in the outpatient setting for failed conservative treatment of [right] knee degenerative joint disease. Once cleared by anesthesia for surgery patient subsequently was taken back to the operative suite underwent anesthesia per anesthesia department and then subsequently underwent a [right] total knee arthroplasty. Procedure was performed without any complications patient was taken to PACU in stable condition patient recovered well in PACU and then was admitted to the floor postoperatively internal medicine was consulted and on board for medical management and assistance with care. Patient received appropriate PT/OT, postoperative antibiotics, postoperative TXA, pain control, postoperative DVT prophylaxis. Elevation and ice. Patient encouraged for knee range of motion allowed weightbearing as tolerated to the operative lower extremity. Dressing was changed as needed, labs were monitored daily. Patient recovered well postoperatively and worked well and progressed well with therapy. [Patient did have a bout of dysphagia during hospitalization seen and evaluated by hospitalist at this point in time recommending outpatient follow-up in set up referral from primary care.]. It was determined on postoperative day [1] the pat ient was stable for discharge from an orthopedic standpoint and medicine. Patient was comfortable with discharge and plan was discharged home. Patient received appropriate discharge instructions as well as pain medication and DVT prophylaxis postoperatively. Given appropriate instructions for dressing management. Patient will follow-up with Dr. Altamirano/orthopedics in the office in 2 weeks. All questions answered. Understand if there is any issues questions or concerns and contact the office. Physical Exam Narrative: Examination right knee: Examination right knee dressings in place clean dry and intact normal postoperative swelling no calf tenderness compartments soft compressible patient able to wiggle toes, plantarflex and dorsiflex ankle sensations intact light touch distally. Distal pulses palpable. Urinary Catheter Management: Chandler Latex: Cath Placed During This Visit: yes, but has since been removed by the nurse Reason for Continuing Indwelling Catheter: Decision to DC Catheter Urinary Catheter Date of Insertion: 08/12/23 Urinary Catheter Time of Insertion: 07:10 Date Urinary Catheter Removed: 08/13/23 Time Urinary Catheter Discontinued: 05:39 Discharge Data Studies Completed and Pending Completed Studies During Hospitalization Category Date Time Status XR knee RT 1-2V 80282 Routine Exams 08/12/23 09:24 Completed Pending at discharge Category Date Time Status Basic Metabolic Panel AM LABS Lab 08/14/23 04:00 Ordered Basic Metabolic Panel AM LABS Lab 08/15/23 04:00 Ordered Complete Blood Count w/Auto AM LABS Lab 08/14/23 04:00 Ordered Complete Blood Count w/Auto AM LABS Lab 08/15/23 04:00 Ordered Radiology Impressions Knee X-Ray 08/12/23 09:24 IMPRESSION: There is good alignment of the interval knee prosthetic hardware. No interval fracture or dislocation is appreciated. Laboratory Results WBC 13.63 10^3/uL (3.29-11.43) H 08/13/23 05:32 RBC 3.64 10^6/uL (3.85-5.65) L 08/13/23 05:32 Hgb 11.10 g/dL (11.27-16.99) L 08/13/23 05:32 Hct 32.7 % (36-47) L 08/13/23 05:32 MCV 89.8 fl (85-98) 08/13/23 05:32 MCH 30.5 pg (27-33) 08/13/23 05:32 MCHC 33.9 g/dL (30-55) 08/13/23 05:32 RDW 12.2 % (12.1-15.1) 08/13/23 05:32 Plt Count 185 10^3/cmm (157-399) 08/13/23 05:32 MPV 11.9 fL (7.4-10.4) H 08/13/23 05:32 Neut % (Auto) 83.5 % 08/13/23 05:32 Lymph % (Auto) 10.6 % 08/13/23 05:32 [place] % (Auto) 5.4 % 08/13/23 05:32 Eos % (Auto) 0.0 % 08/13/23 05:32 Baso % (Auto) 0.1 % 08/13/23 05:32 Neut # (Auto) 11.39 10^3/uL (1.8-7.7) H 08/13/23 05:32 Lymph # (Auto) 1.5 10^3/uL (0.8-4.8) 08/13/23 05:32 [place] # (Auto) 0.7 10^3/uL (0.2-0.9) 08/13/23 05:32 Eos # (Auto) 0.0 10^3/uL (0.0-0.8) 08/13/23 05:32 Baso # (Auto) 0.0 10^3/uL (0.0-0.1) 08/13/23 05:32 Nucleated RBC % (auto) 0 % 08/13/23 05:32 Nucleated RBCs # 0.0 /100WBC 08/13/23 05:32 Sodium 136 mmol/L (136-145) 08/13/23 05:32 Potassium 4.1 mmol/L (3.5-5.1) 08/13/23 05:32 Chloride 104 mmol/L (98-107) 08/13/23 05:32 Carbon Dioxide 23 mmol/L (22-29) 08/13/23 05:32 Anion Gap 13.1 (5-19) 08/13/23 05:32 BUN 14 mg/dL (8-23) 08/13/23 05:32 Creatinine 0.7 mg/dL (0.5-0.9) 08/13/23 05:32 GFR Calculation Not Reportable 08/13/23 05:32 Glucose 121 mg/dL (65-115) H 08/13/23 05:32 Calculated Osmolality 284 mOsm/kg (285-295) L 08/13/23 05:32 Calcium 9.0 mg/dL (8.5-10.5) 08/13/23 05:32 Blood Type A Positive 08/12/23 06:20 Rho(D) Type Rh positive 08/12/23 06:20 Antibody Screen Negative 08/12/23 06:20 Vitals Last Vital Signs Temp 97.9 F 08/13/23 07:37 Pulse 79 08/13/23 08:50 Resp 17 08/13/23 07:37 BP 155/70 08/13/23 09:13 Pulse Ox 96 08/13/23 08:50 O2 Del Method Room Air 08/13/23 08:50 O2 Flow Rate 8 08/12/23 09:46 Discharge Plan Discharge Patient Disposition: Home Health Service Condition: Stable Prescriptions: New Eliquis 2.5 mg tablet 2.5 mg PO BID 14 Days Qty: 28 0RF Protonix 40 mg tablet,delayed release (DR/EC) 40 mg PO DAILY Qty: 30 0RF Continued levothyroxine 0.5 tab PO DAILY atorvastatin 20 mg tablet 20 mg PO DAILY losartan-hydrochlorothiazide 50-12.5 mg tablet 1 tab PO DAILY Discontinued alendronate [Fosamax] 70 mg tablet 70 mg PO .weekly Rx Instructions: Saturday Discharge Orders: Discharge Order (Routine); Ordered 08/13/23 Ordered By: Jose Roberto Altamirano Other Ambulatory Orders: DME: Raghav (Order) Location: None Selected Ordered By: Jose Roberto Altamirano Referrals: [facility] ([facility]) [Outside] Faiza Avalos MD [Primary Care Provider] - 08/27/23 2:15 pm Jose Roberto Altamirano DO [Physician] - 08/27/23 9:30 am Discharge Diet: Regular Discharge Activity: Limit activity as instructed Patient Instructions: Oxycodone, Rapid Release (By mouth), Ondansetron (By mouth), Pantoprazole (By mouth), Apixaban (By mouth), Total Knee Replacement (GEN), Joint Replacement Stoplight, Opioid Safety Activity Restrictions/Additional Instructions: May remove Willian wrap after 3 days . keep incisions clean dry and intact, leave Silverlon bandage dressings on in place for 7 days after that may rinse incisions with warm soapy water pat dry and redress with a dry dressing. Patient may weight-bear as tolerate to the operative extremity Utilize crutches as needed Encourage knee range of motion Ice and elevate as needed for pain and swelling Take pain medication as prescribed Take antinausea medication as needed The prescribed Eliquis twice daily for the next 14 days for blood clot prevention May supplement for pain with Tylenol [id number] as needed No baths or soaks Follow-up in the orthopedic office in 2 weeks Contact the office for any questions or concerns Take Protonix once daily Stop alendronate Follow-up with your primary care provider 3 to 5 days regarding dysphagia. Consideration of EGD with possible dilation Chew food well, encourage fluids. Ground foods would be best. Discharge Attestations Time Spent in Discharge Care*: less than 30 min Quality Metrics Clinical Quality Measures [ No reported AMI, CVA or VTE this stay] Coding Level of Care Code Acute Code for Chg Fwd Diagnoses Primary osteoarthritis of right knee M17.11 Hypertension I10 Time Spent (min) 20
== END 2023-08-13 12:33 | disposition home health service (06) ==
LOC: MEDSURG 09:17
PROVIDERS: Physician Assistant; Admitting Provider Student in an Organized Health Care Education/Training Program; PCP Family Medicine; Visit Provider Student in an Organized Health Care Education/Training Program
PROC: 8E0Y0CZ Robotic Assisted Procedure of Lower Extremity, Open Approach (ICD-10-PCS; CPT 27447; principal; 2023-08-12 07:00)
DX: M17.11 Unilateral primary osteoarthritis, right knee (principal); I10 Essential (primary) hypertension; E66.01 Morbid (severe) obesity due to excess calories; Z68.37 Body mass index [BMI] 37.0-37.9, adult; R13.10 Dysphagia, unspecified
CPT/HCPCS: 20985; 27447; 36415; 51702; 73560; 80048; 85025; 86850; 86900; 97110; 97116; 97161; 97165; C1776; G0378; J0131; J0171; J0690; J1100; J1885; J2405; J2704; J2795; J3010; J7030; J7120

== ENCOUNTER → 2023-08-27 09:22 | Outpatient (BNVA) | payer MEDICARE, SELFPAY | PROVIDERS: PCP Family Medicine; Visit Provider Physician Assistant | DX: Z96.651 Presence of right artificial knee joint (principal) | CPT/HCPCS: 73560; 73565; 99024 ==

== ENCOUNTER 2023-09-11 15:18 | Outpatient (RCR) | payer MEDICARE, SELFPAY | END 2023-10-02 23:59 | disposition home or self-care (01) | LOC: SPT 15:18 | PROVIDERS: PCP Family Medicine; Visit Provider Student in an Organized Health Care Education/Training Program | DX: Z47.1 Aftercare following joint replacement surgery (principal); Z96.651 Presence of right artificial knee joint | CPT/HCPCS: 97110; 97161 ==

== ENCOUNTER 2023-10-03 06:00 | Outpatient (RCR) | payer MEDICARE, SELFPAY | END 2023-11-02 23:59 | disposition home or self-care (01) | LOC: SPT 06:00 | PROVIDERS: PCP Family Medicine; Visit Provider Student in an Organized Health Care Education/Training Program | DX: Z47.1 Aftercare following joint replacement surgery (principal); Z96.651 Presence of right artificial knee joint | CPT/HCPCS: 97110 ==

== ENCOUNTER → 2023-10-08 15:43 | Outpatient (BNVA) | payer MEDICARE, SELFPAY | PROVIDERS: PCP Family Medicine; Visit Provider Physician Assistant | DX: Z96.651 Presence of right artificial knee joint (principal) | CPT/HCPCS: 73560; 73565; 99024 ==

== ENCOUNTER 2023-11-03 06:00 | Outpatient (RCR) | payer MEDICARE, SELFPAY | END 2023-11-29 23:59 | disposition home or self-care (01) | LOC: SPT 06:00 | PROVIDERS: PCP Family Medicine; Visit Provider Student in an Organized Health Care Education/Training Program | DX: Z96.651 Presence of right artificial knee joint (principal) | CPT/HCPCS: 97110 ==

== ENCOUNTER → 2023-11-05 14:18 | Outpatient (BNVA) | payer MEDICARE, SELFPAY | PROVIDERS: PCP Family Medicine; Visit Provider Physician Assistant | DX: T84.82XA Fibrosis due to internal orthopedic prosthetic devices, implants and grafts, initial encounter; Z96.651 Presence of right artificial knee joint; Y79.2 Prosthetic and other implants, materials and accessory orthopedic devices associated with adverse incidents | CPT/HCPCS: 99214 ==

== ENCOUNTER 2023-11-13 05:43 | Day surgery (SDC) | payer MEDICARE, SELFPAY ==
[2023-11-13] VITALS (7 sets, daily range): BP systolic 182–198; BP diastolic 64–85; PULSE 70–93; RESP 17–20; TEMP 36.1–36.2; O2SAT 94–100; BMI 30.9
--- NOTE | 2023-11-13 06:21 | ECG_ITS ---
[facility] Test Date: 2023-11-13 Pat Name: Sol Thomas Department: Room: Gender: Female Surgical Manager: : 1945 Requested By: Lorene Portillo Order Number: [id number] Kianna MD: SIMONE PRADO Measurements Intervals [place] Rate: 63 P: 8 [place]: 149 QRS: 29 QRSD: 77 T: 11 QT: 356 QTc: 365 Interpretive Statements SINUS RHYTHM Compared to ECG 07/30/2023 09:08:05 No significant changes Electronically Signed On 11-14-2023 12:02:17 CDT by SIMONE PRADO [id number]
[2023-11-13] MEDS: sodium chloride 0.9% 1,000 ML 30 ML IV (06:47)
[2023-11-13] MEDS: acetaminophen 1,000 MG/100 ML PIGGYBACK 400 MG IV (06:50)
[2023-11-13] MEDS: ketorolac 30 mg/mL INJ IVP (06:50)
--- NOTE | 2023-11-13 06:52 | ANES.PREANE2 ---
Pre-Anesthetic Assessment Height/Weight: Height 1.6 m Weight 79.379 kg Temp Pulse Resp BP Pulse Ox O2 Del Method 97.0 F L 70 18 195/64 95 Room Air 11/13/23 06:00 11/13/23 06:00 11/13/23 06:00 11/13/23 06:00 11/13/23 06:00 11/13/23 06:07 Operation Date: 11/13/23 07:00 Proposed Procedures p knee manipulation under anesthesia(Right) - Jose Roberto Altamirano DO Familial anesthetic complications: PONV Was Beta Kvng taken within 24 hours: N/A Was Clonidine taken within 24 hours: N/A Last intake: Intake Last Liquid Date 11/12/23 Last Liquid Time 21:30 Last Solid Date 11/12/23 Last Solid Time 21:30 Social No alcohol and No tobacco Exam alert, oriented x 3, clear to auscultation bilaterally and regular rate & rhythm Airway Mallampati: Class II Dentition: chipped (1 filled) CV/HEM Hypertension Metabolic Hyperlipidemia and Thyroid Disease Anesthetic Plan ASA status: 3 Anesthesia: General Risk of > 500 ml blood loss (7ml/kg in children): No Medications/Allergies Home Medications Medication Instructions Recorded Confirmed Last Taken Type levothyroxine 50 mcg PO DAILY 10/04/22 11/12/23 11/12/23 History atorvastatin 20 mg tablet 20 mg PO DAILY 01/03/23 11/12/23 11/12/23 History losartan 50 mg-hydrochlorothiazide 1 tab PO DAILY 07/30/23 11/12/23 11/13/23 History 12.5 mg tablet Allergies Allergy/AdvReac Type Severity Reaction Status Date / Time quinine Allergy ALGY-Hives Verified 11/12/23 10:45 Current Medications Generic Name Dose Route Start Last Admin Trade Name Freq PRN Reason Stop Dose Admin Sodium Chloride 1,000 mls @ 30 mls/hr 11/13/23 06:00 11/13/23 06:47 Sodium Chloride 0.9% IV 11/14/23 05:59 30 mls/hr .Q24H RENE Administration PFSH Anesthesia Medical History Hyperlipidemia Hypertension Osteoporosis Hypothyroidism Surgical History History of tubal ligation History of tonsillectomy H/O medial meniscus repair of left knee H/O meniscectomy of right knee Social History Smoking and tobacco/nicotine status: never used tobacco/nicotine Alcohol intake: never Data Anesthesia Cardiac Studies: No Data to Display
--- NOTE | 2023-11-13 06:57 | W.PM.OPSUD ---
Surgery/Procedure H&P Update DATE OF PROCEDURE: November 13, 2023 DATE H&P PERFORMED: 11/05/23 H&P UPDATE INFORMATION: I have reviewed H&P completed within last 30 days, I have examined patient prior to procedure and No changes to prior documentation PREOP DIAGNOSIS: Right knee arthrofibrosis PRIMARY INDICATION FOR PROCEDURE: Right knee arthrofibrosis status post right total knee arthroplasty PLANNED PROCEDURE: Operation Date: 11/13/23 07:00 Proposed Procedures p knee manipulation under anesthesia(Right) - Jose Roberto Altamirano DO
--- NOTE | 2023-11-13 07:13 | W.PM.BPON ---
Date of Procedure: 11/13/2023 Surgeon: Jose Roberto Altamirano DO Cathode Washer(s): None Procedure(s) performed: Right knee manipulation under anesthesia Findings of the procedure(s): Patient was found to have right knee arthrofibrosis degree range of motion 5-90 after manipulation under anesthesia 0 to 120 degrees on range of motion Toller procedure without issues or complications taken to PACU stable condition Estimated blood loss: 0 Specimen(s) removed: None Post-operative diagnosis: Right knee arthrofibrosis status post right total knee arthroplasty
--- NOTE | 2023-11-13 07:14 | P.OP_ITS ---
Operative Report Date of procedure: November 13, 2023 Surgeon: Jose Roberto Altamirano DO Procedure: Pre-op diagnosis: Right knee arthrofibrosis status post right TKA Post-op diagnosis: Same Post-op findings: Arthrofibrosis significant decreased range of motion 5-90,?manipulation as planned with significant improvement range of motion of 0-120 Procedure done: Right knee?manipulation under anesthesia Surgeon: Jose Roberto Altamirano DO Barrel Lathe Operator Outside: None Anesthesia: MAC IV fluids: See anesthesia record Complications: None Findings: See operative report narrative Condition: stable Disposition: same day Brief History: Patient is a 78-year-old female who status post right total knee arthroplasty she is developed knee arthrofibrosis her date of surgery was 08/12/2023.? Patient is 12 weeks out and definitely has stiffened range of motion 5-90 degrees and she is developed arthrofibrosis and I think she would have significant benefit from a knee?manipulation under anesthesia.? We talked about the ins and outs of procedure? the risk benefits complications alternatives surgery and through shared decision making she elects proceed with right knee?manipulation under anesthesia.? Risk of surgery include not limited to make it better make it worse persistent knee arthrofibrosis, periprosthetic fracture, persistent pain,?Wound complications.? Understanding risk of surgery patient elects to proceed all questions answered for right knee manipulation under anesthesia. Procedure: Patient was seen eval in the preoperative holding area.? Consent was reviewed and signed with patient correct extremity was then marked.? Patient was then seen evaluate by anesthesia once cleared for surgery she was taken back to the operative suite she was kept on the [facility] she then underwent anesthesia per the anesthesia department.? Once appropriately anesthetized final timeout was performed.? And confirm the appropriate procedure. I then performed a standard evaluation of the right knee which patient had range of motion of 5 to 90 degrees of flexion today. I then subsequently utilizing a short lever arm keeping my right hand on the proximal tibia and the distal femur maintaining that short lever arm slowly performed a standard?manipulation with palpable crepitus and audible breaking through the scar tissue to regain significant improved flexion range of motion.? I then did place a small roll of towels under the heel and performed a slight?manipulation posteriorly with a short lever arm to achieve final full flexion.? No complications were noted.? Patient was able to achieve 0-120 for? range of motion satisfied with this range of motion, this was examined comparative to the contralateral knee and was symmetric.? This completed the right knee?manipulation under anesthesia.? Patient was awakened from anesthesia and taken to PACU in stable condition. Disposition: Patient taken to PACU in stable condition recovering well , we will get her aggressive therapy, recommend ice as needed for pain and inflammation.? We will follow-up in the orthopedic office in 2 weeks.? All questions answered.
[2023-11-13] MEDS: HYDROcodone-acetaminophen 5-325 mg Tablet 1 TAB PO (07:50)
--- NOTE | 2023-11-13 09:00 | ANE.PACU2 ---
Inpatient post-anesthesia follow up: Airway intact: Yes Vital signs: Temperature 97 F Pulse Rate 75 Respiratory Rate 18 Blood Pressure 186/82 Pulse Oximetry 99 Oxygen Delivery Me thod Room Air Oxygen Flow Rate Fraction of Inspir ed Oxygen Hydration adequate: Yes Nausea and vomiting: No Pain level: 1 Mental status: Baseline
== END 2023-11-13 09:00 | disposition home or self-care (01) ==
PROVIDERS: PCP Family Medicine; Visit Provider Student in an Organized Health Care Education/Training Program
PROC: (CPT 27570; principal; 2023-11-13 07:00)
DX: M24.661 Ankylosis, right knee (principal)
CPT/HCPCS: 27570; 93005; J0131; J1885; J2704; J3010; J7030

== ENCOUNTER → 2023-11-28 09:17 | Outpatient (BNVA) | payer MEDICARE, SELFPAY | PROVIDERS: PCP Family Medicine; Visit Provider Physician Assistant | DX: T84.82XA Fibrosis due to internal orthopedic prosthetic devices, implants and grafts, initial encounter (principal); Y79.2 Prosthetic and other implants, materials and accessory orthopedic devices associated with adverse incidents; Z96.651 Presence of right artificial knee joint | CPT/HCPCS: 73560; 73565; 99213 ==

== ENCOUNTER → 2023-12-09 07:39 | Outpatient (BNVA) | payer MEDICARE, SELFPAY | PROVIDERS: PCP Family Medicine; Visit Provider Podiatrist Foot & Ankle Surgery | DX: M95.8 Other specified acquired deformities of musculoskeletal system; M25.571 Pain in right ankle and joints of right foot | CPT/HCPCS: 73610; 99213 ==

== ENCOUNTER 2023-12-30 14:03 | Outpatient (CLI) | payer MEDICARE, SELFPAY ==
--- NOTE | 2023-12-30 14:30 | MRR_ITS ---
PROCEDURE INFORMATION: Exam: MR Right Lower Extremity Joint Without and With Contrast; Ankle Exam date and time: 12/30/2023 2:40 PM Age: 78 years old Clinical indication: Patient HX: Chronic right ankle pain following right knee replacement TECHNIQUE: Imaging protocol: Magnetic resonance imaging of the right lower extremity without and with contrast. Exam focused on the ankle. Contrast material: MULTIHANCE; Contrast volume: 16 ml; Contrast route: INTRAVENOUS (IV); COMPARISON: CR XR ankle RT min 3V* [id number] 12/09/2023 7:45 AM FINDINGS: Bones/joints: Unremarkable. No bone abnormalities. Articular cartilage is normal. No joint effusion. LIGAMENTS: Distal tibiofibular syndesmosis: Unremarkable. No tear. Anterior talofibular ligament: Unremarkable. No tear. Posterior talofibular ligament: Unremarkable. No tear. Calcaneofibular ligament: Unremarkable. No tear. Deltoid ligament complex: Unremarkable. No tear. TENDONS: Flexor tendons of foot: Unremarkable as visualized. Tibialis posterior tendon: Unremarkable as visualized. Peroneal tendons: Unremarkable as visualized. Extensor tendons of foot: Unremarkable as visualized. Tibialis anterior tendon: Unremarkable as visualized. Achilles tendon: There is thickening and loss of the normal concave margin of the anterior aspect of the Achilles tendon with focal increased T2 signal intensity and subtle enhancement within the right aspect of the tendon approximately 5 cm proximal to the attachment on the calcaneal tuberosity. The tendon measures 12 mm in thickness at this location compared with 3 mm more proximally No significant retrocalcaneal bursitis. Tarsal canal (Sinus tarsi): Unremarkable. Normal signal of the fat. Tarsal tunnel: Unremarkable. Soft tissues: See Achilles tendon finding. Plantar fascia: Plantar fascia is unremarkable. MR/MR ankle RT wo/w con [id number] IMPRESSION: Focal Achilles tendinopathy with a possible small partial tear approximately 5 cm proximal to the insertion on the calcaneal tuberosity
[2023-12-30] MEDS: gadobenate dimeglumine 20 mL vial IV (15:12)
== END 2023-12-30 14:04 | disposition home or self-care (01) ==
LOC: RAD 14:04
PROVIDERS: PCP Family Medicine; Visit Provider Podiatrist Foot & Ankle Surgery
DX: M76.61 Achilles tendinitis, right leg (principal); Z96.651 Presence of right artificial knee joint
CPT/HCPCS: 73723

== ENCOUNTER → 2024-01-06 14:29 | Outpatient (BNVA) | payer MEDICARE, SELFPAY | PROVIDERS: PCP Family Medicine; Visit Provider Podiatrist Foot & Ankle Surgery | DX: Z09 Encounter for follow-up examination after completed treatment for conditions other than malignant neoplasm (principal); M25.571 Pain in right ankle and joints of right foot; M95.8 Other specified acquired deformities of musculoskeletal system | CPT/HCPCS: 99213 ==

== ENCOUNTER → 2024-01-09 08:44 | Outpatient (BNVA) | payer MEDICARE, SELFPAY | PROVIDERS: PCP Family Medicine; Visit Provider Physician Assistant | DX: Z96.659 Presence of unspecified artificial knee joint (principal) | CPT/HCPCS: 73560; 73565; 99213 ==

== ENCOUNTER → 2024-01-22 14:40 | Outpatient (BNVA) | payer MEDICARE, SELFPAY | PROVIDERS: PCP Family Medicine; Visit Provider Podiatrist Foot & Ankle Surgery | DX: M95.8 Other specified acquired deformities of musculoskeletal system (principal); M79.671 Pain in right foot; M79.672 Pain in left foot; Z09 Encounter for follow-up examination after completed treatment for conditions other than malignant neoplasm; G57.91 Unspecified mononeuropathy of right lower limb; G90.521 Complex regional pain syndrome I of right lower limb | CPT/HCPCS: 99213 ==

== ENCOUNTER → 2024-03-19 07:54 | Outpatient (BNVA) | payer MEDICARE, SELFPAY | PROVIDERS: PCP Family Medicine; Referring Provider Podiatrist Foot & Ankle Surgery; Visit Provider Psychiatry & Neurology Neurology | DX: G57.90 Unspecified mononeuropathy of unspecified lower limb (principal); M79.671 Pain in right foot; G57.30 Lesion of lateral popliteal nerve, unspecified lower limb; G57.41 Lesion of medial popliteal nerve, right lower limb; M54.31 Sciatica, right side | CPT/HCPCS: 95885; 95910 ==

== ENCOUNTER → 2024-03-24 11:14 | Outpatient (BNVA) | payer MEDICARE, SELFPAY | PROVIDERS: PCP Family Medicine; Visit Provider Podiatrist Foot & Ankle Surgery | DX: G57.91 Unspecified mononeuropathy of right lower limb; G90.521 Complex regional pain syndrome I of right lower limb | CPT/HCPCS: 99213 ==

== ENCOUNTER → 2024-04-07 08:50 | Outpatient (BNVA) | payer MEDICARE, SELFPAY | PROVIDERS: PCP Family Medicine; Visit Provider Orthopaedic Surgery | DX: M54.41 Lumbago with sciatica, right side (principal); M54.42 Lumbago with sciatica, left side; G89.29 Other chronic pain | CPT/HCPCS: 72110; 99204 ==

== ENCOUNTER 2024-04-14 08:32 | Outpatient (CLI) | payer MEDICARE, SELFPAY ==
--- NOTE | 2024-04-14 08:45 | MR_ITS ---
WS: [id number] MRI LUMBAR SPINE NONCONTRAST HISTORY: Back Pain, pain RIGHT leg COMPARISON: None available. TECHNIQUE: Sagittal and axial multisequence imaging is submitted. Mild increase in lumbar lordosis. Minimal disc desiccation. No fractures or marrow edema. Disc spaces and vertebral body heights are well-preserved. Conus terminates normally at L1-2 disc level. L1-L2: Normal. L2-L3: Mild annular disc bulging with ligamentum flavum and facet arthritis. Mild RIGHT subarticular recess encroachment. Small amount of fluid in the facet joints. No stenosis. L3-L4: Mild annular disc bulging encroaching upon the subarticular recesses, RIGHT greater than LEFT. Mild ligamentum flavum and facet arthritis. Shallow LEFT foraminal disc protrusion. Moderate RIGHT foraminal disc protrusion with very slight contact on the exiting RIGHT L3 nerve root. L4-L5: Mild annular disc bulging with slight contact on the traversing L5 nerve roots. No foraminal stenosis. Moderate facet arthropathy. L5-S1: Mild annular disc bulging. Minimal encroachment upon the S1 nerve roots. No high-grade stenosis. Mild bilateral facet arthritis. Fluid along the endometrial canal. This is more than typically seen for a patient of this age. This can be further evaluated by transvaginal pelvic ultrasound. MR/MR lumbar spine wo con* [id number] IMPRESSION: 1. No high-grade central stenosis. 2. L3-4: Moderate RIGHT foraminal disc protrusion with slight contact on the e xiting RIGHT L3 nerve root. Shallow LEFT foraminal disc protrusion. 3. L3-4: Mild disc encroachment upon the subarticular recesses, RIGHT greater than LEFT. 4. L4-5: Mild disc contact on the traversing L5 nerve roots. No foraminal sten osis. 5. L2-3: Mild disc bulging with slight RIGHT subarticular recess encroachment. 6. Fluid along the endometrial canal is more than expected for a postmenopausa l patient. Consider evaluation by transvaginal pelvic ultrasound to evaluate fo r mass or cervical stenosis.
== END 2024-04-14 08:33 | disposition home or self-care (01) ==
LOC: RAD 08:35
PROVIDERS: PCP Family Medicine; Visit Provider Orthopaedic Surgery
DX: M51.26 Other intervertebral disc displacement, lumbar region (principal); R93.7 Abnormal findings on diagnostic imaging of other parts of musculoskeletal system; M51.369 Other intervertebral disc degeneration, lumbar region without mention of lumbar back pain or lower extremity pain; M40.46 Postural lordosis, lumbar region; M47.896 Other spondylosis, lumbar region; M51.379 Other intervertebral disc degeneration, lumbosacral region without mention of lumbar back pain or lower extremity pain; M47.897 Other spondylosis, lumbosacral region
CPT/HCPCS: 72148

== ENCOUNTER → 2024-04-16 08:33 | Outpatient (BNVA) | payer MEDICARE, SELFPAY | PROVIDERS: PCP Family Medicine; Visit Provider Orthopaedic Surgery | DX: M54.31 Sciatica, right side (principal) | CPT/HCPCS: 99214 ==

== ENCOUNTER → 2024-04-21 10:29 | Outpatient (BNVA) | payer MEDICARE, SELFPAY | PROVIDERS: PCP Family Medicine; Referring Provider Orthopaedic Surgery; Visit Provider Nurse Practitioner Family | DX: M47.816 Spondylosis without myelopathy or radiculopathy, lumbar region (principal); M48.062 Spinal stenosis, lumbar region with neurogenic claudication; M54.31 Sciatica, right side; G89.29 Other chronic pain | CPT/HCPCS: 99214 ==

== ENCOUNTER → 2024-04-29 10:54 | Outpatient (BNVA) | payer MEDICARE, SELFPAY | PROVIDERS: PCP Family Medicine; Visit Provider Nurse Practitioner Family | DX: M79.18 Myalgia, other site (principal); Z96.651 Presence of right artificial knee joint | CPT/HCPCS: 20553; 73560; 73565; 99213; J1010; J3490 ==

== ENCOUNTER → 2024-05-18 08:11 | Outpatient (BNVA) | payer MEDICARE, SELFPAY | PROVIDERS: PCP Family Medicine; Visit Provider Nurse Practitioner Family | DX: M54.9 Dorsalgia, unspecified (principal); G89.29 Other chronic pain; M54.41 Lumbago with sciatica, right side; M47.816 Spondylosis without myelopathy or radiculopathy, lumbar region; M48.062 Spinal stenosis, lumbar region with neurogenic claudication | CPT/HCPCS: 99213 ==

== ENCOUNTER → 2024-05-26 15:01 | Outpatient (BNVA) | payer MEDICARE, SELFPAY | PROVIDERS: PCP Family Medicine; Visit Provider Anesthesiology Pain Medicine | DX: M54.16 Radiculopathy, lumbar region (principal); G89.29 Other chronic pain; M54.41 Lumbago with sciatica, right side; M54.9 Dorsalgia, unspecified | CPT/HCPCS: 64483; 64484; J1100; J3490; J9999 ==

== ENCOUNTER → 2024-06-09 10:42 | Outpatient (BNVA) | payer MEDICARE, SELFPAY | PROVIDERS: PCP Family Medicine; Visit Provider Nurse Practitioner Family | DX: G89.29 Other chronic pain (principal); M54.41 Lumbago with sciatica, right side; M47.816 Spondylosis without myelopathy or radiculopathy, lumbar region; M48.062 Spinal stenosis, lumbar region with neurogenic claudication | CPT/HCPCS: 99213 ==

== ENCOUNTER → 2024-07-14 08:25 | Outpatient (BNVA) | payer MEDICARE, SELFPAY | PROVIDERS: PCP Family Medicine; Visit Provider Orthopaedic Surgery | DX: G89.29 Other chronic pain (principal); M54.41 Lumbago with sciatica, right side; M48.062 Spinal stenosis, lumbar region with neurogenic claudication; M47.816 Spondylosis without myelopathy or radiculopathy, lumbar region | CPT/HCPCS: 36415; 80053; 81001; 85025; 99204 ==

== ENCOUNTER → 2024-07-29 08:45 | Outpatient (BNVA) | payer MEDICARE, SELFPAY | PROVIDERS: PCP Family Medicine; Visit Provider Family Medicine | DX: Z01.818 Encounter for other preprocedural examination (principal) | CPT/HCPCS: 93005 ==

== ENCOUNTER 2024-08-07 05:47 | Day surgery (SDC) | payer MEDICARE, SELFPAY ==
[2024-08-07] VITALS (15 sets, daily range): BP systolic 126–174; BP diastolic 50–66; PULSE 50–66; RESP 12–24; TEMP 36.1–36.3; O2SAT 94–99; BMI 31.3
[2024-08-07] MEDS: sodium chloride 0.9% 1,000 ML 30 ML IV (06:30)
--- NOTE | 2024-08-07 06:30 | W.PM.OPSUD ---
Surgery/Procedure H&P Update DATE OF PROCEDURE: August 07, 2024 DATE H&P PERFORMED: 07/14/24 H&P UPDATE INFORMATION: I have reviewed H&P completed within last 30 days, I have examined patient prior to procedure and No changes to prior documentation PREOP DIAGNOSIS: Lumbar stenosis with neurogenic claudication PLANNED PROCEDURE: Operation Date: 08/07/24 07:00 Proposed Procedures p Lumbar Spine Decompression Lumbar Decompression(Not Applicable) - Willy Nieves DO
--- NOTE | 2024-08-07 06:40 | ANES.PREANE2 ---
Pre-Anesthetic Assessment Height/Weight: Height 1.6 m Weight 80.286 kg Temp Pulse Resp BP Pulse Ox O2 Del Method 97.4 F L 66 17 163/61 95 Room Air 08/07/24 06:05 08/07/24 06:05 08/07/24 06:05 08/07/24 06:05 08/07/24 06:05 08/07/24 06:05 Preop Diagnosis: Lumbar stenosis with neurogenic claudication Operation Date: 08/07/24 07:00 Proposed Procedures p Lumbar Spine Decompression Lumbar Decompression(Not Applicable) - Willy Nieves DO Familial anesthetic complications: PONV Hx hypoglycemia after anesthesia Was Beta Kvng taken within 24 hours: N/A Was Clonidine taken within 24 hours: N/A Last intake: Intake Last Liquid Date 08/06/24 Last Liquid Time 22:00 Last Solid Date 08/06/24 Last Solid Time 22:00 Social No alcohol and No tobacco Exam alert, oriented x 3, clear to auscultation bilaterally and regular rate & rhythm Airway Mallampati: Class I Dentition: chipped CV/HEM Hypertension Metabolic Hyperlipidemia and Thyroid Disease Anesthetic Plan ASA status: 3 Anesthesia: General Risk of > 500 ml blood loss (7ml/kg in children): No Medications/Allergies Home Medications ?Medication ?Instructions ?Recorded ?Confirmed ?Last Taken ?Type levothyroxine 50 mcg PO DAILY 10/04/22 08/06/24 08/06/24 08:00 History atorvastatin 20 mg tablet 20 mg PO DAILY 01/03/23 08/06/24 08/06/24 08:00 History losartan 50 mg-hydrochlorothiazide 1 tab PO DAILY 07/30/23 08/06/24 08/06/24 08:00 History 12.5 mg tablet alendronate 70 mg tablet 70 mg PO ONCE 04/21/24 08/06/24 08/06/24 08:00 History magnesium chloride 64 mg 64 mg PO DAILY 04/21/24 08/06/24 08/06/24 08:00 History (magnesium chloride) tablet multivitamin 1 tab PO DAILY 04/21/24 08/06/24 08/06/24 08:00 History calcium carbonate 600 mg PO DAILY 07/29/24 08/06/24 08/06/24 08:00 History zinc glycinate 20 mg capsule 20 mg PO DAILY 07/29/24 08/06/24 08/06/24 08:00 History Allergies Allergy/AdvReac Type Severity Reaction Status Date / Time quinine Allergy ALGY-Hives Verified 08/07/24 06:04 Current Medications Generic Name Dose Route Start Last Admin Trade Name Freq PRN Reason Stop Dose Admin Sodium Chloride 1,000 mls @ 30 mls/hr 08/07/24 06:00 08/07/24 06:30 Sodium Chloride 0.9% IV 08/08/24 05:59 30 mls/hr .Q24H RENE Administration PFSH Anesthesia Medical History Hyperlipidemia Hypertension Osteoporosis Hypothyroidism Surgical History History of tubal ligation History of tonsillectomy H/O medial meniscus repair of left knee H/O meniscectomy of right knee Social History Smoking and tobacco/nicotine status: never used tobacco/nicotine Alcohol intake: never
[2024-08-07] MEDS: ceFAZolin 2,000 mg SDV 2000 MG IVP (06:59)
[2024-08-07] MEDS: lidocaine-epi 1% PF 1:200,000 30 mL SDV INJECTION (07:35)
--- NOTE | 2024-08-07 07:54 | XR_ITS ---
WS: [id number] XR lumbar spine 2-3V* [id number] REASON FOR EXAM: OR PICS FINDINGS: Surgical instrument overlying the left L4-L5 disc space. XR/XR lumbar spine 2-3V* [id number] IMPRESSION: Intraoperative lumbar level localization as above.
--- NOTE | 2024-08-07 08:13 | P.OP_ITS ---
Operative Report Date of procedure: August 07, 2024 Pre-op diagnosis: Lumbar stenosis neurogenic claudication Post-op diagnosis: same Procedure done: L4/5 laminectomy partial facetectomy Surgeon: Willy Nieves DO Estimated blood loss (mL): 5 Procedure: L4/5 laminectomy partial facetectomy Patient is brought to the operative suite. After undergoing anesthesia they are placed in the prone position. All areas of impingement are well padded. Patient is then prepped and draped in the normal sterile fashion. A skin incision is made over the L4/5 level. This is confirmed under c-arm guidance. A series of dilators are passed and the tubular retractor is docked on the L4 lamina. A bovie is used to clear the soft tissue off the lamina and the L 4/5 facet joint. A high speed francesca is then used to perform the laminectomy and take down the medial aspect of the L 4/5 facet joint. A tai angel rongeure was then used to take down the remaining lamina and smooth the edge of the laminectomy up to the point where the ligamentum flavum attaches. Attention was then brought to the medial aspect of the facet joint. The remaining medial aspect of the superior and inferior aspect of the facet joint were taken down with the kerrison from the pedicle of L4 to L 5. The facet joint had significant hypertrophy. Attention was then brought to the Ligamentum Flavum. The ligament was taken down from the lamina of L4 to L5 and out medially to the remaining facet joint. The ligament was thick. The dura was then exposed. The dura was in good repair. The L4 nerve was then traced with a curette out the L4/5 foramen and found to be adequately decompressed. The L5 nerve was traced with a curette around the L5 pedicle. The lateral recess was opened with a kerrison helping to further decompress the L5 nerve. Wound is then irrigated copiously with saline and surgiflo is used to stop any bleeding. The tubular retractor is removed and the wound is closed with vicryl and monocryl suture. Glue is then used to protect the wound. A sterile dressing is then placed. Patient was then placed in the supine position and transferred to the PACU in stable condition.
[2024-08-07] MEDS: ondansetron 2 mg/ML SDV 2 mL 4 MG IVP (08:22)
[2024-08-07] MEDS: fentaNYL 50 mcg/mL INJ 2mL IVP ×2 (08:22→08:38)
[2024-08-07] MEDS: HYDROcodone-acetaminophen 5-325 mg Tablet 1 TAB PO (09:07)
--- NOTE | 2024-08-07 09:45 | ANE.PACU2 ---
Inpatient post-anesthesia follow up: Airway intact: Yes Vital signs: Temperature 97.0 F Pulse Rate 63 Respiratory Rate 16 Blood Pressure 160/54 Pulse Oximetry 96 Oxygen Delivery Me thod Room Air Oxygen Flow Rate Fraction of Inspir ed Oxygen Hydration adequate: Yes Nausea and vomiting: No Pain level: 1 Mental status: Baseline
== END 2024-08-07 09:45 | disposition home or self-care (01) ==
PROVIDERS: PCP Family Medicine; Visit Provider Orthopaedic Surgery
PROC: (CPT 63005; principal; 2024-08-07 07:00)
DX: M48.062 Spinal stenosis, lumbar region with neurogenic claudication (principal); M47.816 Spondylosis without myelopathy or radiculopathy, lumbar region; E78.5 Hyperlipidemia, unspecified; E03.9 Hypothyroidism, unspecified; Z79.899 Other long term (current) drug therapy; Z79.890 Hormone replacement therapy
CPT/HCPCS: 63047; 72100; 76000; J0690; J1100; J2405; J2704; J3010; J3490; J7030; J9999

== ENCOUNTER → 2024-08-13 11:36 | Outpatient (BNVA) | payer MEDICARE, SELFPAY | PROVIDERS: PCP Family Medicine; Visit Provider Physician Assistant | DX: T84.82XA Fibrosis due to internal orthopedic prosthetic devices, implants and grafts, initial encounter (principal); Y79.2 Prosthetic and other implants, materials and accessory orthopedic devices associated with adverse incidents; Z96.651 Presence of right artificial knee joint | CPT/HCPCS: 73560; 73565; 99213 ==

== ENCOUNTER → 2024-08-20 13:46 | Outpatient (BNVA) | payer MEDICARE, SELFPAY | PROVIDERS: PCP Family Medicine; Visit Provider Orthopaedic Surgery | DX: Z98.890 Other specified postprocedural states (principal) | CPT/HCPCS: 99024 ==

== ENCOUNTER 2024-09-08 10:08 | Outpatient (CLI) | payer MEDICARE, SELFPAY ==
--- NOTE | 2024-09-08 10:13 | MM_ITS ---
WS: [id number] BILATERAL 3D TOMOSYNTHESIS DIGITAL SCREENING MAMMOGRAPHY WITH CAD CLINICAL INFORMATION: SCREENING HISTORY: Screening mammogram. No current complaints. COMPARISON: 2022 TECHNIQUE: Bilateral CC and MLO views. FINDINGS: The breasts are composed of heterogeneous fibroglandular density tissue, which can limit the detection of small underlying mass lesions. Subtle area of architectural distortion in the central LEFT breast. Recommend further evaluation with spot compression views and ultrasound if persistent. RIGHT breast is unremarkable and unchanged. Incidental benign punctate calcifications LEFT greater than RIGHT. MM/MM [facility] tomosynthesis [id number] IMPRESSION: DENSITY: The breasts are heterogeneously dense, which may obscure small masses. BI-RADS: 0 - Incomplete: Need additional imaging evaluation FOLLOW UP: Need Additional Imaging Recommend LEFT breast diagnostic mammography and ultrasound if persistent.
== END 2024-09-08 10:09 | disposition home or self-care (01) ==
LOC: RAD 10:09
PROVIDERS: PCP Family Medicine; Visit Provider Family Medicine
DX: Z12.31 Encounter for screening mammogram for malignant neoplasm of breast (principal); R92.333 Mammographic heterogeneous density, bilateral breasts; R92.8 Other abnormal and inconclusive findings on diagnostic imaging of breast
CPT/HCPCS: 77063; 77067

== ENCOUNTER → 2024-09-17 14:17 | Outpatient (BNVA) | payer MEDICARE, SELFPAY | PROVIDERS: PCP Family Medicine; Visit Provider Orthopaedic Surgery | DX: Z98.890 Other specified postprocedural states (principal) | CPT/HCPCS: 99024 ==

== ENCOUNTER 2024-09-28 12:21 | Outpatient (CLI) | payer MEDICARE, SELFPAY ==
--- NOTE | 2024-09-28 12:35 | MM_ITS ---
WS: [id number] LEFT 3D TOMOSYNTHESIS DIGITAL MAMMOGRAPHY WITH CAD CLINICAL INFORMATION: ABNORMAL MAMMO HISTORY: Additional views TECHNIQUE: 3 views of the left breast were obtained. FINDINGS: The left breast is composed of heterogeneous fibroglandular density tissue, which can limit the detection of small underlying mass lesions. Persistent area of architectural distortion in the central LEFT breast partially compresses out on the spot compression views but persists. Ultrasound is pending. ULTRASOUND BREAST LEFT TECHNIQUE: Ultrasound left breast focused area of concern. CLINICAL INFORMATION: ABNORMAL MAMMO FINDINGS: Ultrasound lower outer quadrant. In the area of architectural distortion at the 3 to 4 o'clock position there is an irregular shadowing lesion measuring approximately 1.2 x 1.1 x 1.1 cm. This has a suspicious appearance and recommend further evaluation with ultrasound-guided biopsy. This corresponds to the area of architectural distortion on the mammogram. MM/MM diag LT tomosynthesis [id number] IMPRESSION: DENSITY: The breasts are heterogeneously dense, which may obscure small masses. BI-RADS: 4 - Suspicious Finding - Biopsy Should Be Considered FOLLOW UP: US Guided Biopsy Recommended Recommend ultrasound-guided biopsy of the suspicious LEFT breast lesion.
== END 2024-09-28 12:22 | disposition home or self-care (01) ==
LOC: RAD 12:23
PROVIDERS: PCP Family Medicine; Visit Provider Family Medicine
DX: R92.8 Other abnormal and inconclusive findings on diagnostic imaging of breast (principal); R92.333 Mammographic heterogeneous density, bilateral breasts
CPT/HCPCS: 76642; 77061; G0279

== ENCOUNTER 2024-10-28 13:32 | Outpatient (CLI) | payer MEDICARE, SELFPAY ==
--- NOTE | 2024-10-28 13:41 | US_ITS ---
WS: [id number] ULTRASOUND-GUIDED LEFT BREAST BIOPSY HISTORY: ABNORMAL BREAST US/INCONCLUSIVE FINDINGS COMPARISON: 09/28/2024, 09/08/2024 Procedure, risks and complications are explained to the patient. Medications are reviewed. Consent is obtained. The mass in the LEFT breast is localized with ultrasound. Mass localizes to 4:00, 2 cm from the nipple. Skin is cleansed with ChloraPrep and anesthetized with 1% buffered lidocaine. Small dermatome is made. Under sterile conditions mass is biopsied with a 14-gauge Achieve needle. Multiple core biopsies are performed. Material placed in formalin and sent to pathology for review. No complications encountered. Breast tissue marker (Bard ultrasound enhanced ribbon): Single. Patient left the radiology suite with no complications. Patient is instructed to return to [facility] or call with any concerns. US/[place] [id number] IMPRESSION: 1. Uncomplicated core needle biopsy LEFT breast mass at 4:00. PATHOLOGY: Invasive mammary carcinoma. Nuclear grade 1-2. Please see the pathol ogy report for further details. Breast prognostic profile is pending and will b e reported separately. RECOMMENDATION: Follow-up with breast surgeon and oncology.
== END 2024-10-28 13:33 | disposition home or self-care (01) ==
LOC: RAD 13:32
PROVIDERS: PCP Family Medicine; Visit Provider Family Medicine
DX: R92.8 Other abnormal and inconclusive findings on diagnostic imaging of breast (principal); N63.23 Unspecified lump in the left breast, lower outer quadrant
CPT/HCPCS: 19083; 88305; 88361; 88374

== ENCOUNTER → 2024-10-29 13:59 | Outpatient (BNVA) | payer MEDICARE, SELFPAY | PROVIDERS: PCP Family Medicine; Visit Provider Orthopaedic Surgery | DX: Z98.890 Other specified postprocedural states (principal); M25.369 Other instability, unspecified knee | CPT/HCPCS: 99024 ==

== ENCOUNTER → 2024-11-18 09:04 | Outpatient (BNVA) | payer MEDICARE, SELFPAY | PROVIDERS: PCP Family Medicine; Visit Provider Physician Assistant | DX: Z47.89 Encounter for other orthopedic aftercare (principal); Z96.659 Presence of unspecified artificial knee joint | CPT/HCPCS: 73560; 73565; 99213 ==

== ENCOUNTER 2024-11-24 08:10 | Oncology outpatient (recurring) (ONCR) | payer MEDICARE, SELFPAY | END 2024-12-01 23:59 | disposition home or self-care (01) | PROVIDERS: PCP Family Medicine; Visit Provider Internal Medicine Medical Oncology | DX: C50.912 Malignant neoplasm of unspecified site of left female breast (principal); Z17.0 Estrogen receptor positive status [ER+] | CPT/HCPCS: 99205 ==

== ENCOUNTER → 2024-11-26 14:03 | Outpatient (BNVA) | payer MEDICARE, SELFPAY | PROVIDERS: PCP Family Medicine; Visit Provider Student in an Organized Health Care Education/Training Program | DX: N64.59 Other signs and symptoms in breast (principal) | CPT/HCPCS: 99204 ==

== ENCOUNTER 2024-12-02 10:28 | Day surgery (SDC) | payer MEDICARE, SELFPAY ==
[2024-12-02] VITALS (11 sets, daily range): BP systolic 154–177; BP diastolic 69–90; PULSE 57–62; RESP 11–18; TEMP 36.1–36.4; O2SAT 95–99; BMI 30.4
--- NOTE | 2024-12-02 11:05 | ANES.PREANE2 ---
Pre-Anesthetic Assessment Height/Weight: Height 5 ft 3 in Weight 172 lb Temp Pulse Resp BP Pulse Ox O2 Del Method 97.1 F L 62 17 158/72 97 Room Air 12/02/24 10:44 12/02/24 10:44 12/02/24 10:44 12/02/24 10:44 12/02/24 10:44 12/02/24 10:44 Preop Diagnosis: Breast cancer Operation Date: 12/02/24 13:00 Proposed Procedures p LEFT Breast Lumpectomy w/ Needle Localization [id number] C50.912(Left) - Peter Caraballo MD [facility] Lymph Node Biopsy(Left) - Peter Caraballo MD Was Beta Kvng taken within 24 hours: N/A Was Clonidine taken within 24 hours: N/A Last intake: Intake Last Liquid Date 12/01/24 Last Liquid Time 22:00 Last Solid Date 12/01/24 Last Solid Time 22:00 Social No alcohol and No tobacco Exam alert, oriented x 3, clear to auscultation bilaterally and regular rate & rhythm Airway Submandibular: within normal limits Cervical ROM: within normal limits Mallampati: Class III Dentition: full Anesthetic Plan ASA status: 3 Anesthesia: General Other: No prior issues with anesthesia but states she gets a little nauseous that they do not give her any medications in her IV to help NPO since yesterday evening History of hypothyroidism on Synthroid Hypertension on losartan?HCTZ. Preop BP 158/72 Labs from July were reviewed but repeat BMP has been ordered EKG showing sinus rhythm METs greater than 4 Plan for general anesthesia Medications/Allergies Home Medications ?Medication ?Instructions ?Recorded ?Confirmed ?Last Taken ?Type levothyroxine 50 mcg PO DAILY 10/04/22 12/01/24 12/01/24 History atorvastatin 20 mg tablet 20 mg PO DAILY 01/03/23 12/01/24 12/01/24 History losartan 50 mg-hydrochlorothiazide 1 tab PO DAILY 07/30/23 12/01/24 12/01/24 History 12.5 mg tablet alendronate 70 mg tablet 70 mg PO ONCE 04/21/24 12/01/24 11/30/24 History magnesium chloride 64 mg 64 mg PO DAILY 04/21/24 12/01/24 12/01/24 History (magnesium chloride) tablet multivitamin 1 tab PO DAILY 04/21/24 12/01/24 12/01/24 History calcium carbonate 600 mg PO DAILY 07/29/24 12/01/24 12/01/24 History hydrocodone 5 mg-acetaminophen 325 1 - 2 tab PO .Q4-6H #40 tabs 08/07/24 12/01/24 Unknown Rx mg tablet collagen (bovine) 100 % topical 1 applic topical DAILY 11/18/24 12/01/24 12/01/24 History powder Allergies Allergy/AdvReac Type Severity Reaction Status Date / Time quinine Allergy ALGY-Hives Verified 11/26/24 14:10 Current Medications Generic Name Dose Route Start Last Admin Trade Name Freq PRN Reason Stop Dose Admin Sodium Chloride 1,000 mls @ 30 mls/hr 12/02/24 10:45 12/02/24 11:03 Sodium Chloride 0.9% IV 12/03/24 10:44 30 mls/hr .Q24H RENE Administration PFSH Anesthesia Medical History Hyperlipidemia Hypertension Osteoporosis Hypothyroidism Surgical History History of tubal ligation History of tonsillectomy H/O medial meniscus repair of left knee H/O meniscectomy of right knee Social History Smoking and tobacco/nicotine status: never used tobacco/nicotine Alcohol intake: never
--- NOTE | 2024-12-02 11:07 | W.PM.OPSUD ---
Surgery/Procedure H&P Update DATE OF PROCEDURE: December 02, 2024 DATE H&P PERFORMED: 11/26/24 H&P UPDATE INFORMATION: I have reviewed H&P completed within last 30 days, I have examined patient prior to procedure, No changes to prior documentation and Risks and benefits of the procedure reviewed CHANGES TO PREVIOUS DOCUMENTATION: Left breast marked in preop area with patient's input PREOP DIAGNOSIS: Breast cancer PLANNED PROCEDURE: Operation Date: 12/02/24 13:00 Proposed Procedures p LEFT Breast Lumpectomy w/ Needle Localization [id number] C50.912(Left) - Peter Caraballo MD [facility] Lymph Node Biopsy(Left) - Peter Caraballo MD
[2024-12-02 11:33] LABS: Anion Gap 14.2 (5-19); Blood Urea Nitrogen 19 mg/dL (8-23); Calcium 9.4 mg/dL (8.5-10.5); Carbon Dioxide 23 mmol/L (22-29); Chloride 107 mmol/L (98-107); Creatinine Clr Calc Pharmacy 58.2423; Glucose 125 mg/dL (65-115); Osmolality Calculated 294 mOsm/kg (285-295); Potassium 4.2 mmol/L (3.5-5.1); Sodium 140 mmol/L (136-145)
--- NOTE | 2024-12-02 11:37 | PC.NURSE ---
Pt left pre op via wheelchair with to ultrasound with u/a tech.
[2024-12-02] MEDS: ceFAZolin 2,000 mg SDV 2000 MG IVP (12:49)
[2024-12-02] MEDS: isosulfan blue 10 mg/mL SDV 5mL SUBCUT (13:20)
--- NOTE | 2024-12-02 14:43 | P.OP_ITS ---
Operative Report Date of procedure: December 02, 2024 Pre-op diagnosis: Left breast cancer Post-op diagnosis: same Post-op findings: Resected all blue, hot, palpable nodes in left axilla. Gamma probe readings 50 at skin level prior to incision, 60 in vivo, 60 ex vivo. Lumpectomy specimen sent to radiology for evaluation. No close margins. Procedure done: Left lumpectomy and sentinel lymph node biopsy Implants: N/A Specimens removed/disposition: Lumpectomy specimen sent to radiology who confirmed no close margins. Lumpectomy specimen then sent to pathology. [place] lymph node biopsy specimen sent to pathology. Pathology: Lumpectomy specimen sent to radiology who confirmed no close margins. Lumpectomy specimen then sent to pathology. [place] lymph node biopsy specimen sent to pathology Surgeon: Peter Caraballo MD Roadability Machine Operator: N/A Anesthesia: General Estimated blood loss (mL): 30 Complications: N/A Findings: Resected all blue, hot, palpable nodes in left axilla. Gamma probe readings 50 at skin level prior to incision, 60 in vivo, 60 ex vivo. Lumpectomy specimen sent to radiology for evaluation. No close margins. Condition: stable Disposition: same day Brief History: 79-year-old female who presented with left breast cancer amenable for breast conservation surgery. Discussed risk and benefits and patient decided to proceed with left breast lumpectomy and sentinel lymph node biopsy. Patient underwent wire localization by radiology and injection of radiocolloid for sentinel lymph node biopsy. Blue dye also utilized for sentinel lymph node biopsy. Procedure: The wire localization of the left breast mammographic abnormality was performed by the radiologist under ultrasound guidance prior to bringing patient to the OR. A technetium sulfur colloid was also injected by the radiologist in the arsen areolar area of the left breast prior to bringing patient to OR. The left breast and axilla was prepped and draped in the usual sterile fashion. General anesthesia induced. Prophylactic antibiotics administered. The sentinel lymph node biopsy was performed first. 3 mL of 1% Lymphazurin was injected in the subareolar location. The breast was massaged for 5 minutes and a 2 cm incision was made in the left axilla at the edge of the hairline (bryanna counter counts 50 at skin level). The subcutaneous tissue and clavipectoral fascia was divided with electrocautery and gentle dissection revealed lymphatics with stained lymph nodes. Using electrocautery, the lymph nodes that were hot, blue, and palpable were dissected free in a single pack. Ex-vivo bryanna counter of 60 was obtained using the gamma probe. Examination of the axilla did not reveal any other blue, palpable, or hot lymph nodes. The clavipectoral and subcutaneous tissue was approximated using running 2-0 Vicryl suture and skin was closed using running subcuticular 4-0 Monocryl suture and Dermabond. I then turned my attention to performing the left breast lumpectomy. A curvilinear incision was made over lesion. Subcutaneous tissue was divided and skin flaps were raised superiorly and inferiorly. Using electrocautery, the wire along with the breast tissue containing mammographic abnormality was dissected free from the surrounding tissue. Using 3-0 nylon suture the specimen was marked, short stitch was placed superiorly and a long stitch was placed laterally. The wound was irrigated with sterile water, hemostasis ensured with electrocautery and several stick ties as well as medium clips. Subcutaneous tissues approximated using 2-0 running Vicryl suture and skin was closed using running subcuticular 4-0 Monocryl sutures and Dermabond. Fluffs were used for pressure dressing. A sports bra was applied. Patient was transferred to recovery room and stable condition. The lumpectomy specimens were sent to mammography to obtain radiological confirmation of complete excision of the mammographic abnormality. No close margins identified. Patient was transferred to PACU in stable condition.
[2024-12-02] MEDS: ondansetron 2 mg/ML SDV 2 mL 4 MG IVP (15:00)
--- NOTE | 2024-12-02 15:56 | ANE.PACU2 ---
Inpatient post-anesthesia follow up: Airway intact: Yes Vital signs: Temperature 97 F Pulse Rate 62 Respiratory Rate 16 Blood Pressure 174/87 Pulse Oximetry 99 Oxygen Delivery Me thod Room Air Oxygen Flow Rate Fraction of Inspir ed Oxygen Hydration adequate: Yes Nausea and vomiting: No Pain level: 1 Mental status: Baseline
== END 2024-12-02 14:05 | disposition home or self-care (01) ==
PROVIDERS: Student in an Organized Health Care Education/Training Program; PCP Family Medicine; Visit Provider Student in an Organized Health Care Education/Training Program
PROC: (CPT 19120; principal; 2024-12-02 13:00)
PROC: (CPT 19301; 2024-12-02 13:00)
DX: C50.912 Malignant neoplasm of unspecified site of left female breast (principal); I10 Essential (primary) hypertension; E03.9 Hypothyroidism, unspecified; E78.5 Hyperlipidemia, unspecified
CPT/HCPCS: 19301; 38900; 19285; 36415; 38792; 80048; 88307; A9520; J0690; J1100; J2405; J2704; J3010; J3490; J7030; J9999; Q9968

== ENCOUNTER → 2024-12-14 14:50 | Outpatient (BNVA) | payer MEDICARE, SELFPAY | PROVIDERS: PCP Family Medicine; Visit Provider Student in an Organized Health Care Education/Training Program | DX: C50.912 Malignant neoplasm of unspecified site of left female breast (principal) | CPT/HCPCS: 99024 ==

== ENCOUNTER 2025-01-15 07:54 | Outpatient (RCR) | payer MEDICARE, SELFPAY ==
--- NOTE | 2025-01-15 08:00 | NM_ITS ---
WS: [id number] NUCLEAR MEDICINE WHOLE BODY BONE SCAN HISTORY: breast cancer, LEFT. Patient is currently undergoing radiation therapy to the LEFT breast. COMPARISON: None available. TECHNIQUE: The patient was injected with 23.5 mCi of Technetium 99m HDP and serial whole-body scintigrams have been performed with anterior and posterior images. There is mild increased uptake within the LEFT breast and adjacent chest wall which is related to the radiation treatment therapy which is currently ongoing. AC joint, glenohumeral joint and AC joint arthropathy is symmetric. RIGHT knee arthroplasty. Advanced degenerative changes involving the LEFT knee. Arthropathy at the tibiotalar joint in the mid feet. Focal area of uptake in the LEFT mid cervical spine at the facet joint. No rib lesions. No additional spine lesions. Normal soft tissue and renal uptake. NM/NM bone scan whole body* [id number] IMPRESSION: 1. No definite evidence for metastatic bone disease. 2. There is a single lesion in the LEFT mid cervical spine associated with the facet joint. This is likely facet joint arthropathy. No additional rib or spin e lesions. 3. Degenerative arthritic type changes involving the shoulders, knees and ankl es.
--- NOTE | 2025-01-19 15:23 | ONCRAD TMN_ITS ---
Radiation Oncology Weekly Treatment Management Patient: Sol Thomas MR#: [id number] : 1945 Attending Physician: Sameer Kaplan Date of Service: 01/19/2025 Referring Physician(s) : Dr. Mahan Diagnosis: C50.912 - Malignant neoplasm of unspecified site of left female breast, Diagnosed 01/06/2025 (Active) Radiotherapy to date: Course: Lt breast 2024, Treatment Site: Lt Breast, Ref. ID: Breast_L, Energy: 15X/6X, Dose/Fx (cGy): 266, #Fx: 6 / 16, Dose Correction (cGy): 0, Total Dose Delivered (cGy): 1,596, Start Date: 01/12/2025, End Date: 01/19/2025, Elapsed Days: 7 Reason for visit: The patient is being seen today as part of their regularly scheduled weekly on treatment visits to assess for acute toxicities from radiotherapy. Review of Systems: Patient voices no complaints. She is not using creams at this time. She is taken on anastrozole. Vital Signs: Performed on 01/19/2025 2:53 PM BMI - 30.469 kg/m2 (high), Height - 63 in, Weight - 172 lbs, Temperature - 96.3 f, Pulse - 63 /min, Respiration - 16 /min, O2 Sat - 98 %, Pain - 0, Fatigue - 0 and BP - 177/ 70 mm(hg)(high/). Current Medications: alendronate 70 mg PO ONCE anastrozole 1 mg PO DAILY atorvastatin 20 mg PO DAILY calcium carbonate 600 mg PO DAILY collagen (bovine) 100% 1 applic topical DAILY levothyroxine 50 mcg PO DAILY losartan-hydrochlorothiazide 50-12.5 mg 1 tab PO DAILY magnesium chloride 64 mg PO DAILY multivitamin 1 tab PO DAILY Physical Exam: AAOx3. Skin intact. No erythema Imaging: Radiation therapy imaging related to accurate target localization (i.e. KV, MV and CBCT) was reviewed. Appropriate changes, if any, were made to ensure treatment accuracy. Plan: Continue XRT Start using aloe vera cream liberally after each treatment Signed by: Sameer Kaplan 01/19/2025 3:21:47 PM
--- NOTE | 2025-01-26 10:03 | ONCRAD TMN_ITS ---
Radiation Oncology Weekly Treatment Management Patient: Martha Dougherty MR#: [id number] : 1945> Attending Physician: Sameer Kaplan Date of Service: 01/26/2025 Referring Physician(s) : Diagnosis: C50.912 - Malignant neoplasm of unspecified site of left female breast, Diagnosed 01/06/2025 (Active) Radiotherapy to date: Course: Lt breast 2024, Treatment Site: Lt Breast, Ref. ID: Breast_L, Energy: 15X/6X, Dose/Fx (cGy): 266, #Fx: , Dose Correction (cGy): 0, Total Dose Delivered (cGy): 2,926, Start Date: 01/12/2025, Elapsed Days: 14 Reason for visit: The patient is being seen today as part of their regularly scheduled weekly on treatment visits to assess for acute toxicities from radiotherapy. Review of Systems: Patient voices no real complaints. She is 11 of 20 fractions. She is using creams but forgot yesterday. She is also taking anastrozole. Vital Signs: Performed on 01/26/2025 9:30 AM BMI - 30.398 kg/m2 (high), Height - 63 in, Weight - 171.6 lbs, Temperature - 96.5 f, Pulse - 62 /min, Respiration - 18 /min, O2 Sat - 99 %, Pain - 0, Fatigue - 0 and BP - 174/ 74 mm(hg)(high/). Physical Exam: AAOx3. Skin intact. Inframammary fold incision is healing well but has an exposed suture medially. No signs of infection. Imaging: Radiation therapy imaging related to accurate target localization (i.e. KV, MV and CBCT) was reviewed. Appropriate changes, if any, were made to ensure treatment accuracy. Plan: Continue XRT Continue liberal use of creams Continue anastrozole. Signed by: Sameer Kaplan 01/26/2025 10:01:47 AM
== END 2025-01-31 23:59 | disposition home or self-care (01) ==
LOC: RAD 07:54
PROVIDERS: PCP Family Medicine; Visit Provider Student in an Organized Health Care Education/Training Program
DX: M25.569 Pain in unspecified knee (principal)
CPT/HCPCS: 77336; 77387; 77412; 78306; A9561

== ENCOUNTER 2025-01-19 09:24 | Outpatient (RCR) | payer MEDICARE, SELFPAY | END 2025-01-31 23:59 | disposition home or self-care (01) | LOC: SPT 09:24 | PROVIDERS: PCP Family Medicine; Visit Provider Student in an Organized Health Care Education/Training Program | DX: M25.569 Pain in unspecified knee (principal) | CPT/HCPCS: 97110; 97161 ==

== ENCOUNTER 2025-01-19 13:13 | Outpatient (CLI) | payer MEDICARE, SELFPAY ==
--- NOTE | 2025-01-19 13:15 | CTR_ITS ---
PROCEDURE INFORMATION: Exam: CT Chest With Contrast; Diagnostic Exam date and time: 01/19/2025 2:32 PM Age: 79 years old Clinical indication: Condition or disease; Other: Breast cancer; Prior surgery; Surgery date: 6+ months; Surgery type: Left lumpectomy TECHNIQUE: Imaging protocol: Diagnostic computed tomography of the chest with contrast. Radiation optimization: All CT scans at this facility use at least one of these dose optimization techniques: automated exposure control; mA and/or kV adjustment per patient size (includes targeted exams where dose is matched to clinical indication); or iterative reconstruction. Contrast material: OMNI 350; Contrast volume: 100 ml; Contrast route: INTRAVENOUS (IV); COMPARISON: NM bone scan whole body* [id number] 01/15/2025 9:40 AM RADIATION DOSE METRICS: Total DLP (mGy-cm): 902.78 FINDINGS: Tubes, catheters and devices: Surgical clips and scarring in the left axilla. Thyroid: Previous left thyroid lobectomy. 5 mm nodule in the thyroid isthmus, requiring no follow-up. Lungs: Unremarkable. No consolidation. No masses. Pleural spaces: Unremarkable. No pneumothorax. No pleural effusion. Heart: Unremarkable. No cardiomegaly. No pericardial effusion. Coronary arteries: No coronary artery calcifications. Lymph nodes: Unremarkable. No enlarged lymph nodes. Vasculature: Unremarkable. No aortic aneurysm. Bones/joints: Unremarkable. No acute fracture. Soft tissues: 3 cm postoperative hematoma in the left breast. Other findings: Left hilar calcifications indicating previous granulomatous disease. COMMENTS: Consistent with the [employer]'s Incidental Findings Committee white paper (J Am Yoni Radiol 2015): In patients aged 35 years and older with an incidental thyroid nodule equal to or greater than 1.[address], MRI or extrathyroidal US, further evaluation with dedicated thyroid US is recommended for patients with normal life expectancy and without comorbidities. For smaller nodules without suspicious features, no further evaluation or follow up is recommended. PROCEDURE INFORMATION: Exam: CT Abdomen And Pelvis With Contrast Exam date and time: 01/19/2025 2:32 PM Age: 79 years old Clinical indication: Condition or disease; Other: Breast cancer; Prior surgery; Surgery date: 6+ months; Surgery type: Left lumpectomy TECHNIQUE: Imaging protocol: Computed tomography of the abdomen and pelvis with contrast. Radiation optimization: All CT scans at this facility use at least one of these dose optimization techniques: automated exposure control; mA and/or kV adjustment per patient size (includes targeted exams where dose is matched to clinical indication); or iterative reconstruction. Contrast material: OMNI 350; Contrast volume: 100 ml; Contrast route: INTRAVENOUS (IV); COMPARISON: NM bone scan whole body* [id number] 01/15/2025 9:40 AM RADIATION DOSE METRICS: Total DLP (mGy-cm): 902.78 FINDINGS: Liver: Hepatic cysts measuring as large as 26 mm in the left lobe. Other subcentimeter hepatic hypodensities are too small to characterize. Nonobstructive 7 mm left renal calculus. Gallbladder and biliary ducts: Normal. No calcified stones. No ductal dilation. Pancreas: Normal. No ductal dilation. Spleen: Normal. No splenomegaly. Adrenal glands: Normal. No mass. Kidneys and ureters: Nonspecific low-density foci of the kidneys statistically favor benign cysts, no follow-up imaging recommended, as large as 10 mm. No hydronephrosis. Stomach and bowel: Bowel caliber is normal. No paracolonic inflammatory changes. Appendix: Normal appendix. Intraperitoneal space: Unremarkable. No free air. No significant fluid collection. Vasculature: Unremarkable. No abdominal aortic aneurysm. Lymph nodes: Unremarkable. No enlarged lymph nodes. Urinary bladder: No focal wall thickening of the urinary bladder. Reproductive: Uterus is unremarkable. No suspicious adnexal lesion seen. Bones/joints: No suspicious lytic or sclerotic lesions. Soft tissues: There is a small fat-containing umbilical hernia. CT/CT chest abdpel w/*[id number] IMPRESSION: 1. No acute findings. 2. No evidence for metastatic disease. IMPRESSION: No evidence for metastatic disease to the abdomen or pelvis. COMMENTS: Consistent with the [employer]'s Incidental Findings Committee white paper (J Am Yoni Radiol 2018): Any incidental renal lesion less than 1 cm or classified as too small to characterize, or any incidental cystic renal lesion characterized as simple-appearing, is likely benign. No follow-up imaging is recommended for these lesions per consensus recommendations based on imaging criteria.
[2025-01-19] MEDS: iohexol 350 mg/mL 500 mL Btl (per mL) IV (14:44)
[2025-01-19] MEDS: iohexol 350 mg/mL 500 mL Btl (per mL) PO (14:44)
== END 2025-01-19 13:14 | disposition home or self-care (01) ==
LOC: RAD 13:14
PROVIDERS: PCP Family Medicine; Visit Provider Internal Medicine
DX: C50.812 Malignant neoplasm of overlapping sites of left female breast (principal); Z17.0 Estrogen receptor positive status [ER+]; Z98.890 Other specified postprocedural states; Z90.09 Acquired absence of other part of head and neck; E04.1 Nontoxic single thyroid nodule; L76.82 Other postprocedural complications of skin and subcutaneous tissue; K76.89 Other specified diseases of liver; N20.0 Calculus of kidney; R93.5 Abnormal findings on diagnostic imaging of other abdominal regions, including retroperitoneum; K42.9 Umbilical hernia without obstruction or gangrene; N28.89 Other specified disorders of kidney and ureter
CPT/HCPCS: 71260; 74177

== ENCOUNTER 2025-01-27 08:37 | Oncology outpatient (recurring) (ONCR) | payer MEDICARE, SELFPAY ==
[2025-01-06 11:20] LABS: Hematocrit 39.1 % (36-47); Hemoglobin 13.00 g/dL (11.27-16.99); Mean Corpuscular HGB Conc 33.2 g/dL (30-55); Mean Corpuscular Hemoglobin 29.1 pg (27-33); Mean Corpuscular Volume 87.5 fl (85-98); Nucleated Red Blood Cells % 0 %; Platelet Count 197 10^3/cmm (157-399); Red Blood Count 4.47 10^6/uL (3.85-5.65); White Blood Count 6.20 10^3/uL (3.29-11.43)
[2025-01-06 11:38] LABS: Alanine Aminotransferase 13 U/L (0-33); Albumin Level 4.3 g/dL (3.5-5.2); Alkaline Phosphatase 79 U/L (35-105); Anion Gap 15.3 (5-19); Aspartate Amino Transferase 22 U/L (0-32); Blood Urea Nitrogen 24 mg/dL (8-23); Calcium 9.6 mg/dL (8.5-10.5); Carbon Dioxide 24 mmol/L (22-29); Chloride 104 mmol/L (98-107); Globulin 2.3 g/dL (1.3-4.6); Glucose 155 mg/dL (65-115); Osmolality Calculated 295 mOsm/kg (285-295); Potassium 4.3 mmol/L (3.5-5.1); Sodium 139 mmol/L (136-145); Total Protein 6.6 g/dL (6.6-8.7)
--- NOTE | 2025-01-06 12:12 | N.ONRAD NP_ITS ---
Radiation Oncology New Patient Visit Patient: Sol Thomas MR#: [id number] : 1945> Age: 79> Sex: Female> Dictated by: Dr. 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 Chief Complaint / History of Present Illness: Patient is a 79-year-old lady who was recently diagnosed with a stage T1c grade 1 ductal carcinoma of the breast 18 mm in size, ER/CO positive H HER2 negative. Her surgery was done on December 02, 2024. She is here today to discuss the radiation portion of her treatment. Her mother 8 months after her diagnosis of breast cancer in her early 60s. She at this point has said she will decline chemotherapy. Current Medications: - Last Reconciled 01/06/25 by Johnny Okeefe alendronate 70 mg PO ONCE atorvastatin 20 mg PO DAILY calcium carbonate 600 mg PO DAILY collagen (bovine) 100% 1 applic topical DAILY levothyroxine 50 mcg PO DAILY losartan-hydrochlorothiazide 50-12.5 mg 1 tab PO DAILY magnesium chloride 64 mg PO DAILY multivitamin 1 tab PO DAILY Allergies: quinine Allergy (Verified 01/06/25 11:34) JORGE LUIS-Ted Medical History: Hyperlipidemia Hypertension Osteoporosis Hypothyroidism Surgical History: History of tubal ligation History of tonsillectomy H/O medial meniscus repair of left knee H/O meniscectomy of right knee Family History: Social History: Smoking and tobacco/nicotine status: never used tobacco/nicotine Alcohol intake: never Current Complaints / Review of Systems: . Vital Signs: Performed on 01/06/2025 11:47 AM BMI - 30.469 kg/m2 (high), Height - 63 in, Weight - 172 lbs, Temperature - 97.6 f, Pulse - 60 /min, Respiration - 16 /min, O2 Sat - 96 %, Pain - 3, Fatigue - 0 and BP - 115/ 66 mm(hg). Physical Exam: General: Patient is in no apparent distress. She is sitting comfortably in her chair HEENT: Normocephalic atraumatic. Pupils are equal, sclera clear, extraocular muscles intact Pulmonary: Respiratory rate is regular nonlabored Cardiovascular: Regular rate and rhythm Abdomen: Mildly protuberant android pattern Breast: The axillary incision is nicely healed. The breast incision is also healed nicely. There is no erythema or drainage. She still somewhat tender through the axillary area and it does go down to her elbow. Extremities: Without lymphedema Skin: Warm and dry Neurological: Alert and orient x 3. Gait and speech within normal limits Psych: Affect appropriate for current situation Performance Status: 100 Pathology: Lab: Imaging: See HPI Impression: Stage I ductal carcinoma of the breast 18 mm in size ER/CO positive grade 1 Plan: I reviewed with the patient the role of radiation and breast conserving therapy. We discussed what it happened with her mom. We reviewed the typical course of treatment of 4 weeks. We discussed the risks and side effects both acute and long-term. We reviewed skin care options. Patient has agreed to proceed with treatment. At this point she had no additional questions or concerns. She will be visiting with medical oncology later today. At this point she will return tomorrow morning to undergo simulation and begin her treatment shortly thereafter. Signed by: 01/06/2025 12:11:07 PM <<Signature on File>> Time spent with patient: 45 CPT Code: CPT Code:
--- NOTE | 2025-01-12 15:58 | ONCRAD TMN_ITS ---
Radiation Oncology Weekly Treatment Management Patient: Sol Thomas MR#: [id number] : 1945 Attending Physician: Sameer Kaplan Date of Service: 01/12/2025 Referring Physician(s) : Dr. Mahan Diagnosis: C50.912 - Malignant neoplasm of unspecified site of left female breast, Diagnosed 01/06/2025 (Active) Radiotherapy to date: Course: Lt breast 2024, Treatment Site: Lt Breast, Ref. ID: Breast_L, Energy: 15X/6X, Dose/Fx (cGy): 266, #Fx: , Dose Correction (cGy): 0, Total Dose Delivered (cGy): 266, Start Date: 01/12/2025, Elapsed Days: 0 Reason for visit: The patient is being seen today as part of their regularly scheduled weekly on treatment visits to assess for acute toxicities from radiotherapy. Review of Systems: No voiced complaints. We did discuss the use of moisturizing creams after treatment each day. Vital Signs: Performed on 01/12/2025 3:23 PM BMI - 30.079 kg/m2 (high), Height - 63 in, Weight - 169.8 lbs, Temperature - 96.3 f, Pulse - 65 /min, Respiration - 16 /min, O2 Sat - 99 %, Pain - 0, Fatigue - 0 and BP - 178/ 73 mm(hg)(high/). Physical Exam: AAOx3. Skin intact. Imaging: Radiation therapy imaging related to accurate target localization (i.e. KV, MV and CBCT) was reviewed. Appropriate changes, if any, were made to ensure treatment accuracy. Plan: Continue XRT Continue use of moisturizing creams daily after each treatment. Signed by: Sameer Kaplan 01/12/2025 3:56:27 PM
== END 2025-01-31 23:59 | disposition home or self-care (01) ==
PROVIDERS: Internal Medicine; PCP Family Medicine; Visit Provider Radiology Radiation Oncology
DX: Z53.9 Procedure and treatment not carried out, unspecified reason (principal)
CPT/HCPCS: 36415; 73560; 73565; 77280; 77295; 77300; 77334; 77387; 77412; 80053; 85025; 99024; 99205; 99213

== ENCOUNTER 2025-02-01 05:00 | Outpatient (RCR) | payer MEDICARE, SELFPAY | END 2025-03-03 23:59 | disposition home or self-care (01) | LOC: SPT 05:00 | PROVIDERS: PCP Family Medicine; Visit Provider Student in an Organized Health Care Education/Training Program | DX: Z47.1 Aftercare following joint replacement surgery (principal); Z96.651 Presence of right artificial knee joint | CPT/HCPCS: 97110 ==

== ENCOUNTER 2025-02-10 14:40 | Oncology outpatient (recurring) (ONCR) | payer MEDICARE, SELFPAY ==
[2025-02-02 10:41] LABS: Hematocrit 40.9 % (36-47); Hemoglobin 13.70 g/dL (11.27-16.99); Mean Corpuscular HGB Conc 33.5 g/dL (30-55); Mean Corpuscular Hemoglobin 29.8 pg (27-33); Mean Corpuscular Volume 89.1 fl (85-98); Nucleated Red Blood Cells % 0 %; Platelet Count 213 10^3/cmm (157-399); Red Blood Count 4.59 10^6/uL (3.85-5.65); White Blood Count 6.27 10^3/uL (3.29-11.43)
[2025-02-02 11:08] LABS: Alanine Aminotransferase 13 U/L (0-33); Albumin Level 4.3 g/dL (3.5-5.2); Alkaline Phosphatase 84 U/L (35-105); Anion Gap 14.8 (5-19); Aspartate Amino Transferase 17 U/L (0-32); Blood Urea Nitrogen 25 mg/dL (8-23); CA 15-3 13.7 U/mL (0-25); Calcium 9.7 mg/dL (8.5-10.5); Carbon Dioxide 27 mmol/L (22-29); Chloride 103 mmol/L (98-107); Globulin 2.8 g/dL (1.3-4.6); Glucose 120 mg/dL (65-115); Osmolality Calculated 298 mOsm/kg (285-295); Potassium 3.8 mmol/L (3.5-5.1); Sodium 141 mmol/L (136-145); Total Protein 7.1 g/dL (6.6-8.7)
--- NOTE | 2025-02-02 11:19 | ONCRAD TMN_ITS ---
Radiation Oncology Weekly Treatment Management Patient: Sol Thomas MR#: [id number] : 1945 Attending Physician: Dr. Breana Whalen Date of Service: 02/02/2025 Referring Physician(s) : Dr. Ortiz Diagnosis: C50.912 - Malignant neoplasm of unspecified site of left female breast, Diagnosed 01/06/2025 (Active) Radiotherapy to date: Course: Lt breast 2024, Treatment Site: Lt Breast, Ref. ID: Breast_L, Energy: 15X/6X, Dose/Fx (cGy): 266, #Fx: 14 / 16, Dose Correction (cGy): 0, Total Dose Delivered (cGy): 3,724, Start Date: 01/12/2025, Elapsed Days: 21 Reason for visit: The patient is being seen today as part of their regularly scheduled weekly on treatment visits to assess for acute toxicities from radiotherapy. Review of Systems:Pt has noticed mild irritation in IMF Vital Signs: Performed on 02/02/2025 10:44 AM BMI - 30.043 kg/m2 (high), Height - 63 in, Weight - 169.6 lbs, Temperature - 96.3 f, Pulse - 64 /min, Respiration - 17 /min, O2 Sat - 98 %, Pain - 0, Fatigue - 0 and BP - 171/ 76 mm(hg)(high/). Physical Exam: The skin in the inframammary fold is mildly erythematous. The skin in her inverted nipple is dry and crusty. Imaging: Radiation therapy imaging related to accurate target localization (i.e. KV, MV and CBCT) was reviewed. Appropriate changes, if any, were made to ensure treatment accuracy. Plan: Will continue with her treatments as planned. She has 2 more to the whole breast and 4 to the boost. I asked her to use additional cream and to let me know if the area on the inframammary fold worsens. I also asked her to go ahead and try and clean out the inverted nipple with water and a Q-tip. Signed by:Dr. Marlee Whalen 02/02/2025 11:18:07 AM
--- NOTE | 2025-02-09 15:11 | ONCRAD TMN_ITS ---
Radiation Oncology Weekly Treatment Management Patient: Sol Thomas MR#: [id number] : 1945 Attending Physician: Dr. Breana Whalen Date of Service: 02/09/2025 Referring Physician(s) : Dr. Mahan Diagnosis: C50.912 - Malignant neoplasm of unspecified site of left female breast, Diagnosed 01/06/2025 (Active) Radiotherapy to date: Course: Lt breast 2024, Treatment Site: Lt Breast, Ref. ID: Breast_L, Energy: 15X/6X, Dose/Fx (cGy): 266, #Fx: 16 / 16, Dose Correction (cGy): 0, Total Dose Delivered (cGy): 4,256, Start Date: 01/12/2025, End Date: 02/04/2025, Elapsed Days: 23 Course: Lt breast 2024, Treatment Site: LBreast Boost, Ref. ID: CTV, Energy: 6X, Dose/Fx (cGy): 250, #Fx: 3 / 4, Dose Correction (cGy): 0, Total Dose Delivered (cGy): 750, Start Date: 02/05/2025, End Date: 02/09/2025, Elapsed Days: 4 Reason for visit: The patient is being seen today as part of their regularly scheduled weekly on treatment visits to assess for acute toxicities from radiotherapy. Review of Systems: Pt is in good spirits, she only has one more treatment. Vital Signs: BMI - 30.15 kg/m2 (high), Height - 63 in, Weight - 170.2 lbs, Temperature - 97 f, Pulse - 65 /min, Respiration - 17 /min, O2 Sat - 95 % (low), Pain - 0, Fatigue - 0 and BP - 143/ 73 mm(hg)(high/). Physical Exam: Her skin is red but has no desquamation yet. Imaging: Radiation therapy imaging related to accurate target localization (i.e. KV, MV and CBCT) was reviewed. Appropriate changes, if any, were made to ensure treatment accuracy. Plan: Continue treatments and skin care Signed by: Dr. Breana Whalen 02/09/2025 3:09:31 PM
--- NOTE | 2025-02-12 08:06 | N.ONRD TS_ITS ---
Radiation Oncology Treatment Summary Patient: Sol Thomas MR#: [id number] : 1945 Age: 79 Sex: Female Dictated by: Dr. Breana Whalen Date of Service: 02/10/2025 Referring Physician(s) : Diagnosis: C50.912 - Malignant neoplasm of unspecified site of left female breast, Diagnosed 01/06/2025 (Active) Radiotherapy to Date: Course: Lt breast 2024, Treatment Site: Lt Breast, Ref. ID: Breast_L, Energy: 15X/6X, Dose/Fx (cGy): 266, #Fx: 16 / 16, Dose Correction (cGy): 0, Total Dose Delivered (cGy): 4,256, Start Date: 01/12/2025, End Date: 02/04/2025, Elapsed Days: 23 Course: Lt breast 2024, Treatment Site: LBreast Boost, Ref. ID: CTV, Energy: 6X, Dose/Fx (cGy): 250, #Fx: 4 / 4, Dose Correction (cGy): 0, Total Dose Delivered (cGy): 1,000, Start Date: 02/05/2025, End Date: 02/10/2025, Elapsed Days: 5 Clinical Summary: The patient tolerated RT well. She developed a moderate redness but no desquamation. Plan: End of treatment today. Continue on the above medication until the skin reaction resolves. Follow up in one month. Signed by: Dr. Breana Whalen>02/12/2025 8:04:47 AM <<Signature on File>>
== END 2025-03-03 23:59 | disposition home or self-care (01) ==
PROVIDERS: Internal Medicine; PCP Family Medicine; Visit Provider Radiology Radiation Oncology
DX: Z51.0 Encounter for antineoplastic radiation therapy (principal); C50.912 Malignant neoplasm of unspecified site of left female breast
CPT/HCPCS: 36415; 77336; 77387; 77412; 80053; 83615; 85025; 86300; 99024; 99214